=== PATIENT | female | born 1970 | race Caucasian/White ===

== ENCOUNTER → 2022-11-02 15:11 | Outpatient (CLI) | payer BC, SELFPAY ==
--- NOTE | 2022-11-02 15:16 | MM_ITS ---
PROCEDURE INFORMATION: Exam: MG Bilateral Screening 3D Mammography Exam date and time: 11/02/2022 3:15 PM Age: 51 years old Clinical indication: Screening mammogram TECHNIQUE: Imaging protocol: Bilateral Screening tomosynthesis and 2D mammography including computer-aided detection (CAD) when performed. COMPARISON: 1. MG DMSB DIG MAMM-SCREEN LOREN 04/02/2016 9:13 AM 2. MG DMSB DIG MAMM-SCREEN LOREN 03/12/2015 8:38 AM 3. MG DMDXUWAR DIG MAMM-DX UNI RT ADD VIEW 02/15/2014 1:54 PM 4. MG DMSB DIG MAMM-SCREEN LOREN 02/01/2014 10:00 AM FINDINGS: MAMMOGRAPHY: Breast composition: There are scattered areas of fibroglandular density. Mass: None. Architectural distortion: No new or suspicious architectural distortion. Calcifications: No new or suspicious calcifications are present Asymmetric density: No new or suspicious asymmetric density is present Skin thickening: None. Axillary adenopathy: None. IMPRESSION: No mammographic evidence of malignancy. Recommend annual screening mammography unless otherwise clinically indicated. ASSESSMENT: BI-RADS category 1: Negative
== END ==
PROVIDERS: PCP Nurse Practitioner; Visit Provider Nurse Practitioner
DX: Z12.31 Encounter for screening mammogram for malignant neoplasm of breast (principal)
CPT/HCPCS: 77063; 77067

== ENCOUNTER → 2023-03-03 14:58 | Outpatient (CLI) | payer BC, SELFPAY ==
[2023-03-03 15:32] LABS: Basophils % 0.3 % (0.1-2.0); Eosinophils # 0.4 K/mm3 (0.0-0.4); Eosinophils % 5.2 % (0.1-12.0); Lymphocytes # 2.9 K/mm3 (0.7-4.5); Lymphocytes % 35.8 % (10-50); Mean Corpuscular HGB Conc 33.3 g/dL (31.8-35.4); Mean Corpuscular Hemoglobin 30.4 pg (27.0-31.2); Mean Corpuscular Volume 91.2 fl (81-99); Mean Platelet Volume 7.2 fl (7.4-10.4); Monocytes # 0.3 K/mm3 (0.1-1.0); Monocytes % 4.3 % (1.7-9.3); Neutrophils # 4.4 K/mm3 (1.8-7.8); Neutrophils % 54.4 % (37.0-80.0); Platelet Count 347 K/mm3 (142-424); Red Cell Distribution Width 13.5 % (11.5-17.5)
[2023-03-03 15:40] LABS: Chloride 101 mmol/L (98-107); Potassium 3.5 mmoL/L (3.5-5.1); Sodium 141 mmol/L (136-145)
[2023-03-03 15:42] LABS: Bilirubin,Unconjugated 1.7 mg/dL (0.0-1.1); Blood Urea Nitrogen 7 mg/dl (7-17); Estimated Glomerular Filt Rate 76 ml/min (>60); GFR (African American) 92 ML/MIN (>60)
[2023-03-03 15:43] LABS: Alanine Aminotransferase 30 U/L (12-78); Albumin Level 4.3 g/dl (3.5-5.0); Alkaline Phosphatase 86 U/L (38-126); Anion Gap 11.5 mEq/L (5-15); Aspartate Amino Transferase 41 U/L (14-36); Bilirubin,Indirect 1.6 mg/dL (0.0-0.9); Bilirubin,Total 1.6 mg/dl (0.2-1.3); Calcium 9.3 mg/dl (8.4-10.2); Carbon Dioxide 32 mmol/L (22.0-30.0); Chol/HDL Ratio 2.5 (1-3.5); Cholesterol 154 mg/dl (140-200); Glucose 103 mg/dl (74-100); HDL Cholesterol 62 mg/dl (40-60); Total Protein,Serum 7.4 g/dl (6.3-8.2); Triglycerides 177 mg/dl (30-150); VLDL Cholesterol 35 mg/dL (0-40)
[2023-03-03 15:55] LABS: Troponin I < 0.01 ng/ml (0.00-0.034)
[2023-03-03 16:13] LABS: Thyroid Stimulating Hormone 2.05 uIU/mL (0.465-4.68)
[2023-03-03 16:32] LABS: Free T4 (Free Thyroxine) 0.89 ng/dl (0.78-2.19)
== END ==
PROVIDERS: PCP Nurse Practitioner; Visit Provider Physician Assistant
DX: I10 Essential (primary) hypertension (principal); R07.9 Chest pain, unspecified; R00.2 Palpitations; E78.5 Hyperlipidemia, unspecified; K21.9 Gastro-esophageal reflux disease without esophagitis; R60.0 Localized edema; Z82.49 Family history of ischemic heart disease and other diseases of the circulatory system
CPT/HCPCS: 36415; 80048; 80061; 80076; 83735; 84439; 84443; 84484; 85025

== ENCOUNTER → 2023-03-29 06:08 | Outpatient (CLI) | payer BC, SELFPAY ==
--- NOTE | 2023-03-29 07:37 | NM_ITS ---
APPROVED REPORT Exam: Nuclear Stress Test Indication: chest pain..palpitations..fatigue Patient Location: Outpatient Stress Tech: Norma Jaime ND Tech:Ivonne Roche JULIOJaleesa RT (R)(N)(M) Ht: 5 ft 5 in Wt: 187 lbs Bra Size: 40b HR: 58 bpm BP: 131/69 mmHg BSA: 1.92 m2 Rhythm: NSR TID: 1.06 BMI: 31.1 History: chest pain..palpitations..fatigue Procedure: Patient exercised on Lewis protocol 8:31 minutes and sec, resting heart rate 58 bpm, resting blood pressure 131/69 mmHg, with exercise maximum heart rate achived was 150 bpm which is 88 % of the maximum predicted heart rate and blood pressure was 160/82 mmHg. Patient has good exercise capacity, achieved 10.1 METs of workload on treadmill, the blood pressure response to exercise was normal. Cardiac Stress and Resting SPECT Images: Cardiac Stress and Resting SPECT images were obtained using technetium 99m Myoview 31.1 mCi stress and 10.85 mCi at rest. Resting and stress imaging in both supine and prone positions demonstrate a large sized, moderate, predominantly fixed perfusion defect in the anterior wall from the base and extending towards the distal anterior LV wall. There is minimal reversibility in the surrounding region distally towards the apex. Gated LVEF demonstrates normal global and regional LV systolic function. LVEF is calculated at 61%. Conclusion: Large sized, moderate, predominantly fixed perfusion defect in the anterior wall from the base and extending towards the distal anterior LV wall. There is minimal reversibility in the surrounding region distally towards the apex. 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 Gated LVEF demonstrates normal global and regional LV systolic function. LVEF is calculated at 61%. Electronically signed by : Alberta Haile, 03/29/2023 23:41:11
--- NOTE | 2023-03-29 07:37 | CA_ITS ---
APPROVED REPORT Exam: Exercise Treadmill Technologist: Norma Jaime Ht: 5 ft 4 in Wt: 187 lbs BSA: 1.90 m2 HR: 50 bpm BP: 131/69 mmHg Rhythm: NSR Indications: Chest pain, Hypertension Medical History Medications: HCTZ,,,,, RoSUVASTATIN,,,,, Stress Test Details Test: Lewis HR Resting HR: 58 bpm Max Heart Rate (APMHR): 170 bpm Max HR Achieved: 150 bpm Target HR (85% APMHR): 145 bpm % of APMHR: 88 Recovery HR: 75 bpm HR response to stress: Normal HR response to stress BP Resting BP: 131.0/69.0 mmHg Max BP: 160.0/82.0 mmHg Recovery BP: 124.0/64.0 mmHg BP response to stress: Normal blood pressure response to stress. ECG Resting ECG: Sinus bradycardia, Q waves in inferior leads Stress EC mm upsloping ST depression Arrhythmia: PACs, PVCs Recovery ECG: Return to baseline within 3 minutes of recovery Recovery Arrhythmia: PACs Clinical Exercise duration: 08:31 min Highest Stage Achieved: Exercise capacity: 10.1 METs Overall Exercise Capacity for Age: Good Stress ECG Conclusion The patient was able to exercise for 8 minutes, 31 seconds, achieving 10.1 METS. Overall, she exhibited good exercise capacity compared to age and matched sex peers. She had normal HR and BP response to exercise. Symptoms: Chest pain, dyspnea, leg fatigue Arrhythmias/Ectopy: Rare PVC, occassional PAC ST-T Changes: [address] depression was present Conclusion: Mildly abnormal stress, exercised induced chest pain, [address] depression was present. Findings are suggestive of possible ischemia. Myoview images are reported separately. Test Summary REST 06:09 0.0 0.0 58 . 131/ 69 . . Stage 1 01:00 10.0 1.7 81 . . . . Stage 1 02:00 10.0 1.7 89 . . . . Stage 1 03:00 10.0 1.7 105 . 142/ 80 . . Stage 2 01:00 12.0 2.5 112 . . . . Stage 2 02:00 12.0 2.5 117 . . . . Stage 2 03:00 12.0 2.5 120 . 150/ 78 . . Stage 3 01:00 14.0 3.4 139 . . . . Stage 3 . . . . . . . Myoview Injected Stage 3 02:00 14.0 3.4 149 . . . . Stage 3 02:31 14.0 3.4 149 . . . Stop exercise at 08:31 RECOVERY 01:00 0.0 0.0 112 . 160/ 82 . . RECOVERY 02:00 0.0 0.0 93 . 160/ 82 . . RECOVERY 03:00 0.0 0.0 78 . 154/ 59 . . RECOVERY 04:00 0.0 0.0 84 . 132/ 61 . . RECOVERY 05:00 0.0 0.0 74 . 132/ 61 . . RECOVERY 05:26 0.0 0.0 77 . 124/ 64 . . Electronically signed by : Alberta Haile, 03/29/2023 23:35:02
== END ==
PROVIDERS: PCP Nurse Practitioner; Visit Provider Physician Assistant
DX: R07.9 Chest pain, unspecified (principal); I10 Essential (primary) hypertension; R60.0 Localized edema; E78.5 Hyperlipidemia, unspecified; K21.9 Gastro-esophageal reflux disease without esophagitis; Z82.49 Family history of ischemic heart disease and other diseases of the circulatory system
CPT/HCPCS: 78452; 93017; 93306; A9502

== ENCOUNTER 2023-04-15 03:58 | Emergency (ER) | payer BC, SELFPAY ==
[2023-04-15] VITALS (22 sets, daily range): BP systolic 100–159; BP diastolic 46–83; PULSE 47–58; RESP 16–21; TEMP 36.6; O2SAT 92–100; BMI 32.2
--- NOTE | 2023-04-15 03:58 | ECG_ITS ---
APPROVED REPORT Exam: Resting ECG HR:53 bpm ECG Measurements Heart Rate 53 AXES WI 140 P 44 QRSd 97 QRS 45 QT 426 T 38 QTc 410 Conclusion SINUS BRADYCARDIA BORDERLINE ECG UNCONFIRMED REPORT Electronically signed by : Kapil Flores MD 04/15/2023 21:35:08
--- NOTE | 2023-04-15 04:04 | XR_ITS ---
PROCEDURE INFORMATION: Exam: XR Chest Exam date and time: 04/15/2023 4:03 AM Age: 52 years old Clinical indication: Sternal or substernal pain; Additional info: Cp TECHNIQUE: Imaging protocol: Radiologic exam of the chest. Views: 2 views. COMPARISON: No relevant prior studies available. FINDINGS: Lungs: Unremarkable. No consolidation. Pleural spaces: Unremarkable. No pleural effusion. No pneumothorax. Heart/Mediastinum: Unremarkable. No cardiomegaly. Bones/joints: Unremarkable. IMPRESSION: No acute findings.
[2023-04-15 04:29] LABS: Hematocrit 44.1 % (37.0-47.0); Hemoglobin 14.3 g/dL (12.2-16.2); Mean Corpuscular HGB Conc 32.5 g/dL (31.8-35.4); Mean Corpuscular Hemoglobin 29.7 pg (27.0-31.2); Mean Corpuscular Volume 91.5 fl (81-99); Mean Platelet Volume 7.5 fl (7.4-10.4); Platelet Count 322 K/mm3 (142-424); Red Blood Count 4.82 M/mm3 (4.20-5.40); Red Cell Distribution Width 13.2 % (11.5-17.5); White Blood Count 8.5 K/mm3 (4.8-10.8)
[2023-04-15 04:30] LABS: Basophils # 0.1 K/mm3 (0-0.2); Basophils % 0.6 % (0.1-2.0); Eosinophils # 0.4 K/mm3 (0.0-0.4); Eosinophils % 4.3 % (0.1-12.0); Lymphocytes # 3.5 K/mm3 (0.7-4.5); Lymphocytes % 41.4 % (10-50); Monocytes # 0.4 K/mm3 (0.1-1.0); Monocytes % 4.8 % (1.7-9.3); Neutrophils # 4.1 K/mm3 (1.8-7.8); Neutrophils % 47.6 % (37.0-80.0)
[2023-04-15 04:50] LABS: Anion Gap 13.1 mEq/L (5-15); Bilirubin,Total 1.4 mg/dl (0.2-1.3); Blood Urea Nitrogen 11 mg/dl (7-17); Calcium 9.1 mg/dl (8.4-10.2); Carbon Dioxide 29 mmol/L (22.0-30.0); Chloride 103 mmol/L (98-107); Creatinine Clearance Estimated 101 mL/min (50-200); Estimated Glomerular Filt Rate 66 ml/min (>60); GFR (African American) 80 ML/MIN (>60); Glucose 88 mg/dl (74-100); Potassium 3.1 mmoL/L (3.5-5.1); Sodium 142 mmol/L (136-145); Troponin I < 0.01 ng/ml (0.00-0.034)
[2023-04-15 04:51] LABS: Alanine Aminotransferase 33 U/L (12-78); Albumin Level 4.5 g/dl (3.5-5.0); Albumin/Globulin Ratio 1.3 (1.1-1.8); Alkaline Phosphatase 84 U/L (38-126); Aspartate Amino Transferase 37 U/L (14-36); Globulin 3.4 g/dL (1.3-3.2); Total Protein,Serum 7.9 g/dl (6.3-8.2)
--- NOTE | 2023-04-15 04:59 | HMH.EDCP ---
Discharge Plan Disposition Chief Complaint: Chest Pain Prescriptions Prescriptions: No Action rosuvastatin 40 mg tablet 40 mg PO DAILY hydrochlorothiazide 12.5 mg tablet 12.5 mg PO DAILY omeprazole 40 mg capsule,delayed release(DR/EC) 40 mg PO DAILY aspirin [Adult Low Dose Aspirin] 81 mg tablet,delayed release (DR/EC) 81 mg PO DAILY metoprolol succinate [Toprol XL] 25 mg tablet extended release 24 hr 25 mg PO DAILY Referrals Follow up/Referrals: Rut Powell APRN [Primary Care Provider] - See instructions Discharge ED Provider: Deep Castro Chest Pain HPI General Chief Complaint: Chest Pain Stated Complaint: cp Time Seen by Provider: 04/15/23 04:23 Mode of Arrival: Ambulatory Source of Information: Patient Limitations: No Limitations Description of Symptoms (Recalled from ER Triage Doc. by RN): pt c/o lt side chest pain with radiation down lt arm since 2am. pt took 81 mg ASA. History of Present Illness HPI narrative: 52-year-old white female weight 2 AM with chest pain that radiates to the left nipple. She also reports that her left hand feels numb and tingly at times. No shortness of breath no nausea vomiting or diaphoresis. She has hypertension and hypercholesterolemia she has recently been on their work-up for cardiology and has had an echocardiogram and a stress test they are talking about doing a heart cath in the near future. Related Data Home Medications Medication Instructions Recorded Confirmed hydrochlorothiazide 12.5 mg tablet 12.5 mg PO DAILY High Blood 03/03/23 04/15/23 Pressure rosuvastatin 40 mg tablet 40 mg PO DAILY High Cholesterol 03/03/23 04/15/23 aspirin 81 mg tablet,delayed 81 mg PO DAILY Blood Thinner 04/15/23 04/15/23 release (Adult Low Dose Aspirin) metoprolol succinate 25 mg 25 mg PO DAILY High Blood Pressure 04/15/23 04/15/23 tablet,extended release 24 hr (Toprol XL) omeprazole 40 mg capsule,delayed 40 mg PO DAILY gerd 04/15/23 04/15/23 release Allergies Allergy/AdvReac Type Severity Reaction Status Date / Time NO KNOWN ALLERGIES Allergy Uncoded 04/13/23 10:34 [facility] Disclaimer: The information contained in this section may have been updated after the patient was seen, as this information can be updated by other users. Medical History Chest pain Edema of hand Family history of ischemic heart disease GERD (gastroesophageal reflux disease) HLD (hyperlipidemia) HTN (hypertension) Palpitations Social History Smoking Status: Never smoker alcohol intake: never substance use type: denies use current occupational status: employed Travel in the last 8 weeks: None ROS Obtained: Yes Systems reviewed as appropriate & no additional complaints except as documented Physical Exam General General appearance: alert and in no apparent distress Head Head exam: atraumatic and normocephalic ENT ENT exam: Present normal exam and normal oropharynx Neck Neck exam: Present normal inspection Chest Chest inspection: Present normal inspection and symmetric chest wall rise Respiratory Respiratory exam: Present normal lung sounds bilaterally; Absent respiratory distress or wheezes Cardiovascular Cardiovascular exam: Present regular rate and normal rhythm Abdominal Exam Abdominal exam: Present soft; Absent tenderness Extremities Exam Extremities exam: Present normal inspection and full ROM; Absent tenderness Neurological Exam Neurological exam: Present alert, oriented X3 and CN II-XII intact Medical Decision Making Medical Records MR Comment: 52-year-old white female presents with chest pain waking her from sleep. The patient has been having intermittent chest pain and is currently in the middle of a cardiology work-up which has recently indicated that she had a positive stress test with fixed defect in her anter
--- NOTE | 2023-04-15 05:26 | PC.NURSE ---
MD PREFERS TO WAIT A LITTLE BIT BEFORE CONTACTING CARDIOLOGY
--- NOTE | 2023-04-15 07:09 | PC.NURSE ---
Repeat Troponin sent
--- NOTE | 2023-04-15 07:43 | PC.NURSE ---
Rounded on patient; pt resting on ED stretcher with family at BS. No needs at this time.
[2023-04-15 07:58] LABS: Troponin I < 0.01 ng/ml (0.00-0.034)
--- NOTE | 2023-04-15 08:40 | PC.NURSE ---
Awaiting a call back from MELYSSA Fish with Cardiology
--- NOTE | 2023-04-15 08:55 | PC.NURSE ---
Polina KUO @ [facility]
--- NOTE | 2023-04-15 08:55 | PC.NURSE ---
MELYSSA Fish with cardiology at [facility]
--- NOTE | 2023-04-15 09:09 | PC.NURSE ---
Covid swab sent to lab; pt reports no other needs at this time. call light within reach
[2023-04-15 09:16] LABS: Coronavirus 19, PCR Not Detected (NotDetected); Influenza A, PCR Not Detected (NotDetected); Influenza B, PCR Not Detected (NotDetected)
--- NOTE | 2023-04-15 09:22 | HMH.PHAINT1 ---
Pharmacy Intervention Comments: MEDICATION RECONCILIATION COMPLETED ON PATIENT USING EXTERNAL FILL HISTORY FROM PHARMACY AND LIST FROM CARDIOLOGY OFFICE. -KAIA ABDALLA, YUMIKOD
--- NOTE | 2023-04-15 09:24 | ECG_ITS ---
APPROVED REPORT Exam: Resting ECG HR:53 bpm ECG Measurements Heart Rate 53 AXES ID 177 P 66 QRSd 91 QRS 45 QT 438 T 27 QTc 422 Conclusion SINUS BRADYCARDIA BORDERLINE ECG UNCONFIRMED REPORT Electronically signed by : Kapil Flores MD 04/15/2023 21:34:23
--- NOTE | 2023-04-15 09:28 | PC.NURSE ---
CM contacted for admission
--- NOTE | 2023-04-15 09:29 | IR_ITS ---
APPROVED REPORT Patient Location: Emergent Associate Property Manager: LIZETH Ibanez RT (R) PROCEDURES Left heart catheterization Left ventriculogram Selective coronary angiogram Catheter placement in the left subclavian artery with left subclavian artery angiography INDICATION Unstable angina, Blood pressure disparity between right and left arm suspect left subclavian stenosis, Informed consent was obtained prior to the procedure. COMPLICATIONS None Estimated Blood Loss: Less than 10 mls TECHNIQUE One percent lidocaine used to anesthetize the right groin. The right femoral artery was accessed via the Seldinger technique and a 5 Kosovan sheath was placed in the right femoral artery. A JL 4, JR4 catheter were used to perform left heart catheterization, left ventriculogram selective coronary angiography as well as selective engagement of the 2 vein grafts and the left internal mammary artery. At the end of the procedure the patient was transferred to the postop holding area in stable condition for sheath removal. ANGIOGRAPHIC RESULTS The left main artery Normal The left anterior descending artery Normal The circumflex artery Dominant normal The right coronary artery Normal The THOMSON ventriculogram reveals Normal 65% The left ventricular end-diastolic pressure Normal 10 mmHg Left subclavian artery is normal IMPRESSION Normal coronary arteries Normal ejection fraction Normal left ventricular end-diastolic pressure Normal left subclavian artery PLAN 1. Evaluation of noncardiac symptoms Electronically signed by : Henri Bustos MD 04/15/2023 10:30:27
--- NOTE | 2023-04-15 09:37 | PC.NURSE ---
Kala Samuel RN, at to take patient up to record label internship via wheelchair
--- NOTE | 2023-04-15 09:48 | EXP.CARD.CON ---
History of Present Illness History of Present Illness Consult date: 04/15/23 Requesting physician: Deep Bolanos Consult reason: chest pain Chief complaint: unstable angina, left arm pain History of present illness: 52-year-old white female with past medical history of hypertension, hyperlipidemia and GERD presented to emergency department this morning with complaints of midsternal chest pain radiating to left chest and left arm since 2 AM. Patient was evaluated in cardiology clinic on 04/13/2023 for abnormal stress test and has been set up for an outpatient left heart cath. Reports pain awoke her from sleep this morning prompting her to come to ER. EKG upon arrival was negative for acute ischemic changes and serial troponins have been negative. Other labs as follow: WBC 8.5, hemoglobin 14.3, sodium 142, potassium 3.1 and creatinine 0.9. Chest x-ray was negative for acute process. Patient reports she has had ongoing and progressive worsening chest pain with activity and at rest associated with shortness of breath and nausea for the past 2 months. Patient also complaining of left arm pain that is worse with activity and coolness to hand. Given patient has ongoing angina symptoms and an abnormal stress test we will admit patient for left heart catheterization today. [facility] Disclaimer: The information contained in this section may have been updated after the patient was seen, as this information can be updated by other users. Medical History Chest pain Edema of hand Family history of ischemic heart disease GERD (gastroesophageal reflux disease) HLD (hyperlipidemia) HTN (hypertension) Palpitations Social History Smoking Status: Never smoker alcohol intake: never substance use type: denies use current occupational status: employed Travel in the last 8 weeks: None Review of Systems Review of Systems Review of systems:: pertinent systems reviewed and negative unless documented below Constitutional Constitutional: Reports system reviewed and no additional complaints, except as documented *Cardiovascular Cardiovascular: Reports chest pain and Reports dyspnea *Respiratory Respiratory: Reports system reviewed and no additional complaints, except as documented and Reports dyspnea *Gastrointestinal Gastrointestinal: Reports system reviewed and no additional complaints, except as documented *Musculoskeletal Comments: Left upper extremity pain, exacerbated with activity *Neurologic Neurologic: Reports system reviewed and no additional complaints, except as documented and Denies confusion Psychiatric Psychiatric: Reports system reviewed and no additional complaints, except as documented and Denies confusion Exam Data for Last 24 hours Vital signs and Labs for Last 24 Hours: Temp Pulse Resp BP Pulse Ox O2 Del Method 97.8 F 58 L 16 158/83 H 97 Room Air 04/15/23 09:42 04/15/23 09:42 04/15/23 09:42 04/15/23 09:42 04/15/23 08:30 04/15/23 09:42 Laboratory Results - last 24 hr 04/15/23 04:05: WBC 8.5, RBC 4.82, Hgb 14.3, Hct 44.1, MCV 91.5, MCH 29.7, MCHC 32.5, RDW 13.2, Plt Count 322, MPV 7.5, Neut % (Auto) 47.6, Lymph % (Auto) 41.4, [place] % (Auto) 4.8, Eos % (Auto) 4.3, Baso % (Auto) 0.6, Neut # (Auto) 4.1, Lymph # (Auto) 3.5, [place] # (Auto) 0.4, Eos # (Auto) 0.4, Baso # (Auto) 0.1, Sodium 142, Potassium 3.1 L, Chloride 103, Carbon Dioxide 29, Anion Gap 13.1, BUN 11, Creatinine 0.90, Estimated Creat Clear 101, Estimated GFR 66, Est GFR ( Amer) 80, Glucose 88, Calcium 9.1, Total Bilirubin 1.4 H, AST 37 H, ALT 33, Alkaline Phosphatase 84, Troponin I < 0.01, Total Protein 7.9, Albumin 4.5, Globulin 3.4 H, Albumin/Globulin Ratio 1.3 04/15/23 07:07: Troponin I < 0.01 I & O for Last 24 hours: Intake & Output 04/12/23 04/13/23 04/14/23 04/15/23 23:59 23:59 23:59 23:59 Weight 188 lb Constitutional Consti
--- NOTE | 2023-04-15 15:51 | PC.NURSE ---
PT IS BEING DISCHARGED HOME. PT HAS BEEN UP TO THE BATHROOM. REQUESTED A MTCALLY TO DRINK AND TOLERATED WELL. AMBULATED IN THE ROOM. PT HAS A FOLLOW UP APPOINTMENT WITH CARDIOLOGY AND WAS INSTRUCTED TO FOLLOW UP WITH HER PCP. CONTINUE ALL HOME MEDICATIONS PRESCRIBED. DRESSING TO THE RIGHT GROIN C/D/I. PT AND UNDERSTOOD DISCHARGE INTRUCTIONS.
== END 2023-04-15 15:57 | disposition admitted as inpatient to this hospital (09) | DRG 287 ==
LOC: ER 09:24 → 2ND 09:33 → ER 04-16 14:42
PROVIDERS: Family Medicine; Internal Medicine; Emergency Provider Emergency Medicine; PCP Nurse Practitioner; Visit Provider Internal Medicine
PROC: 4A023N7 Measurement of Cardiac Sampling and Pressure, Left Heart, Percutaneous Approach (ICD-10-PCS; principal; 2023-04-15 09:45)
DX: I25.110 Atherosclerotic heart disease of native coronary artery with unstable angina pectoris (principal); M79.602 Pain in left arm; I10 Essential (primary) hypertension; K21.9 Gastro-esophageal reflux disease without esophagitis; E78.00 Pure hypercholesterolemia, unspecified
CPT/HCPCS: 36225; 71046; 80053; 84484; 85025; 87636; 93005; 93458; 96374; 96375; 99152; 99285; C1725; C1769; Q9967

== ENCOUNTER 2024-04-26 11:00 | Outpatient (CLI) | payer OTHER, SELFPAY ==
[2024-04-26 11:32] LABS: Basophils # 0.1 K/mm3 (0-0.2); Basophils % 0.7 % (0.1-2.0); Eosinophils # 0.2 K/mm3 (0.0-0.4); Eosinophils % 2.9 % (0.1-12.0); Hematocrit 36.6 % (37.0-47.0); Lymphocytes # 2.2 K/mm3 (0.7-4.5); Lymphocytes % 33.2 % (10-50); Mean Corpuscular HGB Conc 38.3 g/dL (31.8-35.4); Mean Corpuscular Hemoglobin 35.4 pg (27.0-31.2); Mean Corpuscular Volume 92.4 fl (81-99); Mean Platelet Volume 7.9 fl (7.4-10.4); Monocytes # 0.3 K/mm3 (0.1-1.0); Monocytes % 4.8 % (1.7-9.3); Neutrophils # 3.9 K/mm3 (1.8-7.8); Neutrophils % 58.4 % (37.0-80.0); Platelet Count 253 K/mm3 (142-424); Red Blood Count 3.96 M/mm3 (4.20-5.40); Red Cell Distribution Width 13.8 % (11.5-17.5); White Blood Count 6.6 K/mm3 (4.8-10.8)
[2024-04-26 12:39] LABS: Alanine Aminotransferase 26 U/L (12-78); Albumin Level 4.1 g/dl (3.5-5.0); Alkaline Phosphatase 79 U/L (38-126); Anion Gap 10.1 mEq/L (5-15); Aspartate Amino Transferase 33 U/L (14-36); Bilirubin,Indirect 1.6 mg/dL (0.0-0.9); Bilirubin,Total 1.6 mg/dl (0.2-1.3); Bilirubin,Unconjugated 1.8 mg/dL (0.0-1.1); Blood Urea Nitrogen 10 mg/dl (7-17); Calcium 9.7 mg/dl (8.4-10.2); Carbon Dioxide 30 mmol/L (22.0-30.0); Chloride 105 mmol/L (98-107); Chol/HDL Ratio 2.8 (1-3.5); Cholesterol 164 mg/dl (140-200); Estimated Glomerular Filt Rate 76 ml/min (>60); GFR (African American) 92 ML/MIN (>60); Glucose 100 mg/dl (74-100); HDL Cholesterol 59 mg/dl (40-60); Potassium 4.1 mmoL/L (3.5-5.1); Sodium 141 mmol/L (136-145); Total Protein,Serum 6.7 g/dl (6.3-8.2); Triglycerides 164 mg/dl (30-150); VLDL Cholesterol 33 mg/dL (0-40)
[2024-04-26 12:51] LABS: Direct LDL Cholesterol 65.38 mg/dL (100-129)
[2024-04-26 12:53] LABS: Free T4 (Free Thyroxine) 0.87 ng/dl (0.78-2.19)
[2024-04-26 13:10] LABS: Thyroid Stimulating Hormone 0.14 uIU/mL (0.465-4.68)
== END 2024-04-26 23:59 | disposition home or self-care (01) ==
LOC: LAB 11:01
PROVIDERS: PCP Nurse Practitioner; Visit Provider Nurse Practitioner
DX: R06.00 Dyspnea, unspecified (principal); E78.5 Hyperlipidemia, unspecified; K21.9 Gastro-esophageal reflux disease without esophagitis; R07.89 Other chest pain; I11.9 Hypertensive heart disease without heart failure
CPT/HCPCS: 36415; 80048; 80061; 80076; 83735; 84439; 84443; 85025

== ENCOUNTER 2024-06-01 10:47 | Outpatient (CLI) | payer OTHER, SELFPAY ==
--- NOTE | 2024-06-01 10:47 | US_ITS ---
FINAL REPORT CLINICAL HISTORY: discoloration of BLE, HTN, hyperlipidemia, bilateral rest pain. COMPARISON: None FINDINGS: ANKLE-BRACHIAL PRESSURE INDICES Pressure indices are as follows: RIGHT LOWER EXTREMITY: Ankle-brachial pressure index: 1.3 Comments: Normal LEFT LOWER EXTREMITY: Ankle-brachial pressure index: 1.21 Comments: Normal CONCLUSION: No evidence of significant obstructive peripheral vascular disease of the lower extremities Reviewed, Interpreted and Dictated by Jarred Terrazas MD Transcribed by Janine Veloz Authenticated and [facility]
== END 2024-06-01 23:59 | disposition home or self-care (01) ==
LOC: RT 10:47
PROVIDERS: PCP Nurse Practitioner; Visit Provider Nurse Practitioner
DX: M79.661 Pain in right lower leg (principal); M79.662 Pain in left lower leg; L81.9 Disorder of pigmentation, unspecified; R00.1 Bradycardia, unspecified; R06.09 Other forms of dyspnea
CPT/HCPCS: 93923

== ENCOUNTER 2024-06-02 08:02 | Outpatient (CLI) | payer OTHER, SELFPAY ==
--- NOTE | 2024-06-02 08:37 | MM_ITS ---
PROCEDURE INFORMATION: Exam: MG Bilateral Screening 3D Mammography Exam date and time: 06/02/2024 8:27 AM Age: 53 years old Clinical indication: Screening examination TECHNIQUE: Imaging protocol: Bilateral Screening tomosynthesis and 2D mammography including computer-aided detection (CAD) when performed. COMPARISON: 1. MG MM DIG SCREENING MAMM BI W/CAD 11/02/2022 3:15 PM 2. MG DMSB DIG MAMM-SCREEN LOREN 04/02/2016 9:13 AM FINDINGS: MAMMOGRAPHY: Breast composition: There are scattered areas of fibroglandular density. Mass: None. Architectural distortion: None. Calcifications: No suspicious calcifications. Asymmetric density: None. Skin thickening: None. Axillary adenopathy: None. IMPRESSION: No mammographic evidence of malignancy. Annual screening is recommended unless otherwise clinically indicated. ASSESSMENT: BI-RADS Category 1: Negative
== END 2024-06-02 23:59 | disposition home or self-care (01) ==
LOC: RAD 08:02
PROVIDERS: PCP Nurse Practitioner; Visit Provider Nurse Practitioner
DX: Z12.39 Encounter for other screening for malignant neoplasm of breast (principal)
CPT/HCPCS: 77063; 77067

== ENCOUNTER 2024-07-04 08:55 | Outpatient (CLI) | payer OTHER, SELFPAY ==
--- NOTE | 2024-07-04 09:00 | XR_ITS ---
FINAL REPORT CLINICAL HISTORY: Left hand pain COMPARISON: None FINDINGS: LEFT HAND Three views demonstrate no acute fracture or dislocation. The visualized joint spaces are normally aligned. There is mild hypertrophy of the second and third MCP joints, consistent with osteoarthritic change. The soft tissues are unremarkable. 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 Reviewed, Interpreted and Dictated by Jarred Terrazas MD Transcribed by Janine Veloz Authenticated and [facility]
--- NOTE | 2024-07-04 09:00 | XR_ITS ---
FINAL REPORT CLINICAL HISTORY: Right Hand Pain COMPARISON: None FINDINGS: RIGHT HAND Three views demonstrate no acute fracture or dislocation. The visualized joint spaces are normally aligned. There is mild hypertrophic change of the second and third metacarpal phalangeal joints, consistent with changes of osteoarthritis. The soft tissues are unremarkable. 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 Reviewed, Interpreted and Dictated by Jarred Terrazas MD Transcribed by Janine Veloz Authenticated and [facility]
== END 2024-07-04 23:59 | disposition home or self-care (01) ==
LOC: RAD 08:57
PROVIDERS: PCP Nurse Practitioner; Visit Provider Physician Assistant Surgical
DX: M79.641 Pain in right hand (principal); M79.642 Pain in left hand
CPT/HCPCS: 73130

== ENCOUNTER 2024-07-13 14:57 | Outpatient (CLI) | payer OTHER, SELFPAY ==
--- NOTE | 2024-07-13 14:57 | MR_ITS ---
FINAL REPORT CLINICAL HISTORY: Cervical spine pain left sided and left arm pain, numbness, tingling FINDINGS: Multiplanar MR imaging of the cervical spine was performed without contrast. On the sagittal T2-weighted images, disc degeneration is seen throughout the lumbar spine. There are endplate changes at several levels. There is no evidence of fracture. There is mild kyphosis centered at C5. The cervical spinal cord has an unremarkable appearance without evidence of mass, edema or syrinx. No significant canal stenosis is identified. The cervicomedullary junction is normal. C2-3: There is no significant canal stenosis or neural foraminal narrowing. C3-4: An annular bulge is present. There is no significant canal stenosis or neural foraminal narrowing. C4-5: An annular bulge is present. There is no significant canal stenosis or neural foraminal narrowing. C5-6: There is a disc osteophyte complex with moderate left neuroforaminal narrowing. C6-7: There is a disc osteophyte complex with moderate right neuroforaminal narrowing. C7-T1: There is no significant canal stenosis or neural foraminal narrowing. IMPRESSION: Multilevel degenerative disc disease as above. Reviewed, Interpreted and Dictated by Hector Rainey III, MD Transcribed by Kaylie Parra Authenticated and [facility]
== END 2024-07-13 23:59 | disposition home or self-care (01) ==
LOC: RAD 14:57
PROVIDERS: PCP Physician Assistant Surgical; Visit Provider Physician Assistant Surgical
DX: M54.12 Radiculopathy, cervical region (principal)
CPT/HCPCS: 72141

== ENCOUNTER 2024-08-03 07:16 | Day surgery (SDC) | payer OTHER, SELFPAY ==
[2024-07-28 13:08] VITALS: BMI 31.6
[2024-08-03 07:51] VITALS: BP 139/72; PULSE 54; RESP 16; TEMP 36.4; O2SAT 99
[2024-08-03] MEDS: LACTATED RINGERS 1000ML 1,000 ML 25 ML IV (08:05)
--- NOTE | 2024-08-03 08:16 | P.PNANES_ITS ---
[facility] Disclaimer: The information contained in this section may have been updated after the patient was seen, as this information can be updated by other users. Medical History Right hand pain Left hand pain Palpitations GERD (gastroesophageal reflux disease) HLD (hyperlipidemia) HTN (hypertension) Family history of ischemic heart disease Edema of hand Chest pain Surgical History History of cardiac cath H/O: hysterectomy Hx of section Hx laparoscopic cholecystectomy Family History Father Coronary artery disease Colon cancer Social History (Updated 08/03/24 @ 07:51 by Annamaria Crystal) Smoking Status: Never smoker alcohol intake: never substance use type: denies use current occupational status: employed Travel in the last 8 weeks: None caffeine: No [facility] Anesthesia Checklist Patient Identification Patient Identification: Arm Band Structural Data Admitted From: Home Planned Operative Procedure/s: Colonoscopy Consent for Planned Operative Procedure(s) Verified: Yes Verified Documents: Surgical Consent and History and Physical NPO Status Verified Time NPO: 00:00 Additional verifications Anesthesia Reactions: No Airway Assessment Mallampati Score:: Class II C-Spine Mobility Assessed: Yes TMJ Mobility Assessed: Yes Dentition: Good Dentition Neurological Assessment Level of Consciousness: Awake, Alert and Appropriate Anesthesia Plan Anesthesia Risk discussed: Yes Anesthesia Plan: Verified ASA Class: II Anesthesia Type: MAC
--- NOTE | 2024-08-03 08:55 | P.HP_ITS ---
History of Present Illness *Admission Date: 08/03/24 *Reason for visit:: Screening *History of present illness: Mrs. Mathews is a 53-year-old female who is here for initial screening colonoscopy. The examination is deemed medically necessary for colonoscopy. The patient has been seen, interviewed and examined prior to the procedure by both myself and the anesthesia provider. [facility] Disclaimer: The information contained in this section may have been updated after the patient was seen, as this information can be updated by other users. Medical History (Updated 08/03/24 @ 09:04 by Ozzy Suárez II, MD) Right hand pain Left hand pain Palpitations GERD (gastroesophageal reflux disease) HLD (hyperlipidemia) HTN (hypertension) Family history of ischemic heart disease Edema of hand Chest pain Surgical History History of cardiac cath H/O: hysterectomy Hx of section Hx laparoscopic cholecystectomy Family History Father Coronary artery disease Colon cancer Social History (Updated 08/03/24 @ 07:51 by Annamaria Crystal) Smoking Status: Never smoker alcohol intake: never substance use type: denies use current occupational status: employed Travel in the last 8 weeks: None caffeine: No Other Medical History Have you received the Flu Vaccine for this season: No Have you received the Pneumonia Vaccine: No Review of Systems Review of Systems Review of systems (narrative): Negative *Cardiovascular Comments: Negative *Gastrointestinal Comments: Negative *Genitourinary Comments: Negative *Musculoskeletal Comments: Negative *Neurologic Comments: Negative Meds Home Medications and Allergies Home Medications ?Medication ?Instructions ?Recorded ?Confirmed ?Type hydrochlorothiazide 12.5 mg tablet 12.5 mg PO DAILY Fluid 03/03/23 07/28/24 History rosuvastatin 40 mg tablet 40 mg PO DAILY Cholesterol 03/03/23 07/28/24 History aspirin 81 mg tablet,delayed 81 mg PO DAILY HEART HEALTH #90 04/26/24 07/28/24 Rx release (Adult Low Dose Aspirin) tabs estradiol 0.01% (0.1 mg/gram) 0.01 applic vaginal DAILY 04/26/24 07/28/24 History vaginal cream metoprolol succinate 25 mg 25 mg PO DAILY Hypertension #90 04/26/24 07/28/24 Rx tablet,extended release 24 hr tabs (Toprol XL) omeprazole 40 mg capsule,delayed 40 mg PO DAILY Acid Reflux #90 caps 04/26/24 07/28/24 Rx release New Prescriptions to Start Prescriptions: Allergies Allergy/AdvReac Type Severity Reaction Status Date / Time No Known Allergies Allergy Verified 07/04/24 09:41 Exam Data for Last 24 hours Vital signs and Labs for Last 24 Hours: Temp Pulse Resp BP Pulse Ox O2 Del Method 97.5 F L 54 L 16 139/72 99 Room Air 08/03/24 07:51 08/03/24 07:51 08/03/24 07:51 08/03/24 07:51 08/03/24 07:51 08/03/24 07:51 *Routine HEENT Exam Head: Present normocephalic Eye: Present EOMI and PERRL ENT: Present mucous membranes moist *Routine Neck Exam Neck: Present supple *Routine Respiratory Exam Respiratory: Present CTA bilaterally *Routine Cardiovascular Exam Cardiovascular: Present RRR *Routine Abdominal Exam Abdominal: Present soft and normoactive bowel sounds; Absent tenderness *Routine Rectal Exam Rectal:: deferred *Routine Genitalia Exam Genitalia:: deferred *Routine Extremities Exam Extremities: Absent cyanosis, clubbing or edema *Routine Skin Exam Skin: Present warm; Absent rash *Routine Neurological Exam Neurological: Present alert and oriented X3 Assessment and Plan *Assessment and plan (1) Screening for colon cancer: Status: Acute Category: Medical Code(s): Z12.11 - Encounter for screening for malignant neoplasm of colon Plan A/P: 1. Screening for colon cancer is the preprocedural diagnosis. The patient will be anesthetized/sedated using MAC sedation. The patient has been seen and examined. Cardiac and lung assessment prior to the examination is stable. Proceed with planned colonoscopy
[2024-08-03 08:57] VITALS: O2SAT 99
--- NOTE | 2024-08-03 09:05 | HMH.PROCNOTE ---
[facility] Procedure Note Date: 08/03/24 Time: 09:25 Procedure Note:: Colonoscopy Procedure Report: Colonoscopy Endoscopist: Ozzy Suárez II, MD Referring physician: MALISSA Arriaga ([facility]) Date of Procedure: August 03, 2024 Equipment: Olympus 190 variable stiffness pediatric colonoscope Sedation: MAC sedation Indication: Mrs. Mathews is a 53-year-old female who is here for initial screening colonoscopy. The patient reports no rectal bleeding or weight loss. She has had some chronic constipation for which she takes MiraLAX daily. This does result in some bloating and intermittent abdominal discomfort. The patient's father had colon cancer at the age of 83. The patient did have a colonoscopy in her 20s. Procedure: Prior to the procedure, a history and physical exam was performed, and patient's medications and allergies were reviewed. The risks, benefits and alternatives of the sedation and procedure were discussed with the patient. All questions were answered and informed consent was obtained. The patient was brought to the procedure room. Patient identification and proposed procedure were verified by the physician and the nurse. The patient was placed in a left lateral decubitus position and the scope was passed under direct vision. Throughout the procedure, the patient's blood pressure, pulse, and oxygen saturations were monitored continuously. The colonoscopy was accomplished without difficulty. The patient tolerated the procedure well. Findings: On digital rectal examination there was normal rectal tone. There were no external hemorrhoids. The colonoscope was introduced through the anal canal to the rectum and advanced to the cecum. The ileocecal valve and appendiceal orifice were identified. The scope was advanced a short distance into the ileum which appeared grossly normal. The scope was then withdrawn into the colon. The cecum, ascending, transverse, descending, sigmoid and rectum were grossly normal. There were no mucosal abnormalities identified. Upon retroflexion within the rectum there were grade 1 internal hemorrhoids.The preparation was excellent throughout with [place] Preparation Score of 9. The cecal time was 11 minutes. Impression: 1. Normal colonoscopy with intubation of the terminal ileum 2. Grade 1 internal hemorrhoids Plan: The patient will not require screening/surveillance colonoscopy again for 10 years by ACS guidelines. I would recommend continuing MiraLAX with the addition of Citrucel. If patient fails to improve, would consider Linzess or Trulance. The patient may benefit from pelvic floor physical therapy.
[2024-08-03 09:29] VITALS: BP 92/41; PULSE 76; RESP 16; TEMP 37.1; O2SAT 99
[2024-08-03 09:39] VITALS: BP 98/52; PULSE 75; RESP 16; O2SAT 98
[2024-08-03 09:49] VITALS: BP 114/59; PULSE 62; RESP 16; O2SAT 99
[2024-08-03 09:59] VITALS: BP 111/51; PULSE 60; RESP 16; O2SAT 99
== END 2024-08-03 10:09 | disposition home or self-care (01) ==
PROVIDERS: PCP Nurse Practitioner; Visit Provider Internal Medicine Gastroenterology
PROC: (CPT 45378; principal; 2024-08-03 09:00)
DX: R14.0 Abdominal distension (gaseous) (principal); K64.0 First degree hemorrhoids; Z80.0 Family history of malignant neoplasm of digestive organs; Z12.11 Encounter for screening for malignant neoplasm of colon
CPT/HCPCS: 45378; J7120

== ENCOUNTER 2024-12-19 09:57 | Outpatient (CLI) | payer OTHER, SELFPAY ==
[2024-12-19 10:18] LABS: Basophils % 0.3 % (0.1-2.0); Eosinophils # 0.3 K/mm3 (0.0-0.4); Eosinophils % 3.2 % (0.1-12.0); Hematocrit 42.5 % (37.0-47.0); Hemoglobin 14.2 g/dL (12.2-16.2); Lymphocytes # 2.2 K/mm3 (0.7-4.5); Lymphocytes % 21.9 % (10-50); Mean Corpuscular HGB Conc 33.4 g/dL (31.8-35.4); Mean Corpuscular Hemoglobin 30.2 pg (27.0-31.2); Mean Corpuscular Volume 90.4 fl (81-99); Mean Platelet Volume 9.4 fl (7.4-10.4); Monocytes # 0.6 K/mm3 (0.1-1.0); Monocytes % 5.6 % (1.7-9.3); Neutrophils % 68.9 % (37.0-80.0); Platelet Count 340 K/mm3 (142-424); Red Cell Distribution Width 12.5 % (11.5-17.5); White Blood Count 10.2 K/mm3 (4.8-10.8)
[2024-12-19 11:23] LABS: Alanine Aminotransferase 31 U/L (12-78); Albumin Level 4.7 g/dl (3.5-5.0); Alkaline Phosphatase 77 U/L (38-126); Anion Gap 12.4 mEq/L (5-15); Aspartate Amino Transferase 34 U/L (14-36); Bilirubin,Direct 0.3 mg/dl (0.0-0.4); Bilirubin,Indirect 1.3 mg/dL (0.0-0.9); Bilirubin,Total 1.6 mg/dl (0.2-1.3); Bilirubin,Unconjugated 1.2 mg/dL (0.0-1.1); Blood Urea Nitrogen 9 mg/dl (7-17); Calcium 9.5 mg/dl (8.4-10.2); Carbon Dioxide 29 mmol/L (22.0-30.0); Chloride 101 mmol/L (98-107); Chol/HDL Ratio 2.4 (1-3.5); Cholesterol 166 mg/dl (140-200); Estimated Glomerular Filt Rate 66 ml/min (>60); GFR (African American) 80 ML/MIN (>60); Glucose 96 mg/dl (74-100); HDL Cholesterol 70 mg/dl (40-60); Magnesium 2.3 mg/dl (1.6-2.3); Potassium 3.4 mmoL/L (3.5-5.1); Sodium 139 mmol/L (136-145); Total Protein,Serum 7.3 g/dl (6.3-8.2); Triglycerides 132 mg/dl (30-150); VLDL Cholesterol 26 mg/dL (0-40)
[2024-12-19 11:35] LABS: Direct LDL Cholesterol 56.78 mg/dL (100-129)
[2024-12-19 11:36] LABS: Free T4 (Free Thyroxine) 0.98 ng/dl (0.78-2.19)
[2024-12-19 11:54] LABS: Thyroid Stimulating Hormone 0.91 uIU/mL (0.465-4.68)
== END 2024-12-19 23:59 | disposition home or self-care (01) ==
LOC: LAB 09:58
PROVIDERS: PCP Nurse Practitioner; Visit Provider Nurse Practitioner
DX: R07.89 Other chest pain (principal); R06.09 Other forms of dyspnea; R40.0 Somnolence; R20.0 Anesthesia of skin; R20.2 Paresthesia of skin; I10 Essential (primary) hypertension
CPT/HCPCS: 36415; 80048; 80061; 80076; 83735; 84439; 84443; 85025

== ENCOUNTER 2025-05-09 13:49 | Outpatient (CLI) | payer OTHER, SELFPAY ==
--- OUTSIDE RECORDS SUMMARY | 2025-04-02 14:30 | XMS_ITS | Encounter Summary ---
Author Organization Healthcare Address [address] [place] [address] Care Team Providers Care Brush Hand Name Role Phone Pcp, No Primary Care Provider Unavailabl e Reason for Visit * Consultation (Routine) - Closed Specialty Diagnoses / Procedures Referred By Yadiel quintero Referred To Contact Oral Surgery Diagnoses Fibroma of mouth Mauro Ferrell, DMD [address] [address] Phone: tel: fax: [facility] partnership marketing manager Faculty [facility] [address] [place] [address] [address] [place] [address] Phone: tel: Referral ID Status Reason Start Date Expiration Date V isits Requested Visits Authorized [id number] Closed Specialty Services Required 03/19/2025 09/18/2026 1 1 Encounter Details Date Type Department Care Team (Late st Contact Info) Description 04/02/2025 2:30 PM EDT Office Visit [facility] learning coordinator [facility] [address] [phone] Mike Beckwith Oral mucosal lesion (Primary Dx) [...] documented as of this encounter Care Teams Brush Hand Relationship Specialty Start Date End Date Pcp, [place] [address] PCP - General Family Medicine 04/02/25 documented as of this encounter
--- OUTSIDE RECORDS SUMMARY | 2025-04-03 09:00 | XMS_ITS | Encounter Summary ---
Author Organization Healthcare Address [address] [place] [address] Care Team Providers Care Master Tax Advisor Name Role Phone Pcp, No Primary Care Provider Unavailabl e Encounter Details Date Type Department Care Team (Late st Contact Info) Description 04/03/2025 9:00 AM EDT Office Visit [facility] risk compliance analyst [facility] [address] [phone] Mike Beckwith Fibroma (Primary Dx) Social History Tobacco Use Types Packs/Day Years Used Date Smoking Tobacco: Never Smokeless Tobacco: Never Comments Unknown Sex and Gender Information Value Date Recorded Sex Assigned at Not on file Legal Sex Female 6:05 PM EDT Gender Identity Not on file Sexual Orientation Not on file documented as of this encounter Last Filed Vital Signs Vital Sign Reading Time Taken Comments Blood Pressure 114/67 04/03/2025 9:02 AM EDT Pulse 51 04/03/2025 9:02 AM EDT Temperature 36.8 C (98.2 F) 04/03/2025 9:02 AM EDT Respiratory Rate - - Oxygen Saturation 95% 04/03/2025 9:02 AM EDT Inhaled Oxygen Concentration - - Weight 87 kg (191 lb 12.8 oz) 04/03/2025 9:02 AM EDT Height 162.6 cm (5' 4 ) 04/03/2025 9:02 AM EDT Body Mass Index 32.92 04/03/2025 9:02 AM EDT documented in this encounter Miscellaneous Notes * Progress Notes - Miek Beckwith - 04/03/2025 9:00 AM EDT ORAL & MAXILLOFACIAL SURGERY - Operative Report Patient (ASA 2) presents to clinic for scheduled surgery - PMH and R/B/A's reviewed, informed consent updated. - A timeout was performed. - Pre-op Diagnosis: Lesion - Post-op Diagnosis: Same - Resident/Attending: Mike Beckwith / Dr. Ortega - Procedure: Excisional Biopsy of 3x3 right buccal mucosa mucosal colored raised Lesion - Estimated Blood Loss: Minimal DESCRIPTION OF PROCEDURE Local Anesthesia: - 1.8 mL 2% Lidocaine w/1:100,000 epi [x1] - 1.8 mL 0.5% Marcaine w/ 1:200,000 epi [x1] Throat screen was placed. Immediate pre-incision time-out performed. Excisional Biopsy of Lesion - Lesion identified. Using a sharp 15 blade, and elliptical incision was made within the lesion. It was then sharply dissected free with care to avoid nearby vital structures. Specimen placed in formalin. Surgical site copiously irrigated with NS. Soft tissue was re-approximated with 3-0 vicryl rapide. Hemostasis achieved with gauze. POST-OP Patient tolerated treatment well. Post-operative instructions were given orally and written to patient. Specimens: 1 specimen. Total specimen measuring 3 mm x 3 mm Drains: None Complications: None Prescriptions: - Peridex 0.12% Disp: 1 bottle Swish with 20mL for 30 seconds, then spit bid 1 refill - OTC Pain Meds Follow-Up: F/U: 2 weeks for biopsy results Mike Beckwith Cosigned by Ines Aguirre DDS at 04/11/2025 1:27 PM EDT Associated attestation - Ines Aguirre DDS - 04/11/2025 1:27 PM EDT I was present during all critical and matthews portions of the procedure(s) and immediately available [facility] services the entire duration. See resident note for details. documented in this encounter Plan of Treatment Not on file documented as of this encounter Procedures Procedure Name Priority Date/Time Associated Diagnosis Comments ACCESSION OF TISSUE, GROSS AND MICROSCOPIC EXAMINATION, PREPARATION AND TRANSMISSION OF WRITTEN REPORT Routine 04/03/2025 11:15 AM EDT Fibroma documented in this encounter Results * Oral Pathology Exam (04/03/2025 11:15 AM EDT) Gross Description A. Right Buccal Mucosa, The gross examination on April 03 reveals one irregular piece of white and miller soft tissue measuring 0.5x0.5x0.5 cm. The entire specimen was submitted for microscopic examination. A request for this from the treating clinician accompanied the specimen. 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 04/04/2025 9:43 AM [facility] ORAL PATHOLOGY Microscopic Description Microscopic examination reveals stratified squamous epithelium with underlying fibrous connective tissue. The epithelium is acanthotic and hyperorthokerat otic. The connective tissue is a densely collagenized nodular mass with scattered fibroblasts and chronic inflammatory cells. 04/04/2025 9:43 AM [facility] ORAL PATHOLOGY Final Diagnosis Right Buccal Mucosa: FIBROMA (FOCAL FIBROUS HYPERPLASIA), EXCISIONAL BIOPSY D10.39 04/04/2025 9:43 AM [facility] ORAL PATHOLOGY at 0943 EDT Tissue Buccal mucosa / Unknown Non-blood Collection / Unknown 04/03/2025 11:15 AM EDT 04/03/2025 11:37 AM EDT us Ines Nobles DDS LAB PATHOLOGY ORD ERABLES Final Result [facility] ORAL PATHOLOGY 800 [facility] Room [place] [phone] documented in this encounter Visit Diagnoses Diagnosis Fibroma- Primary Other benign neoplasm of connective and other soft tissue of unspecified site documented in this encounter Additional Health Concerns Assessment Noted Time A Body Mass Index follow-up plan has been documented for the patient 04/03/2025 12:59 PM EDT documented as of this encounter Care Teams Master Tax Advisor Relationship Specialty Start Date End Date Pcp, [place] [address] PCP - General Family Medicine 04/02/25 documented as of this encounter
--- OUTSIDE RECORDS SUMMARY | 2025-05-09 13:52 | XMS_ITS | Encounter Summary ---
Author Organization Healthcare Address [address] [place] [address] Care Team Providers Care Boilermaker Mechanic Name Role Phone Unavailable Primary Care Provider Unavailabl e Encounter Details Date Type Department Care Team (Late st Contact Info) Description 03/21/2025 Telephone [facility] director telehealth Clinic [address] [phone] Dental, Surgeon, [address] [place], [place] [id number] Social History Tobacco Use Types Packs/Day Years Used Date Smoking Tobacco: Never Assessed Comments Unknown Sex and Gender Information Value Date Recorded Sex Assigned at Not on file Legal Sex Female 6:05 PM EDT Gender Identity Not on file Sexual Orientation Not on file documented as of this encounter Miscellaneous Notes * Telephone Encounter - Renny Almonte - 03/21/2025 10:03 AM EDT Attempted to reach pt again for internal referral for a fibroma. No answer so left a vm advising ptto call back to coordinate appt. mg documented in this encounter Plan of Treatment Not on file documented as of this encounter Visit Diagnoses Not on filedocumented in this encounter
--- OUTSIDE RECORDS SUMMARY | 2025-05-09 13:52 | XMS_ITS | Encounter Summary ---
Author Organization Healthcare Address [address] [place] [address] Care Team Providers Care Big Data Developer Name Role Phone Pcp, No Primary Care Provider Unavailabl e Encounter Details Date Type Department Care Team (Latest Contact Info) Description 04/03/2025 Travel Social History Tobacco Use Types Packs/Day Years Used Date Smoking Tobacco: Never Smokeless Tobacco: Never Comments Unknown Sex and Gender Information Value Date Recorded Sex Assigned at Not on file Legal Sex Female 6:05 PM EDT Gender Identity Not on file Sexual Orientation Not on file documented as of this encounter Plan of Treatment Not on file documented as of this encounter Visit Diagnoses Not on filedocumented in this encounter Additional Health Concerns Assessment Noted Time A Body Mass Index follow-up plan has been documented for the patient 04/03/2025 12:59 PM EDT documented as of this encounter Care Teams Big Data Developer Relationship Specialty Start Date End Date Pcp, Gisela [address] [place] [address] PCP - General Family Medicine 04/02/25 documented as of this encounter
--- OUTSIDE RECORDS SUMMARY | 2025-05-09 13:52 | XMS_ITS | Encounter Summary ---
Author Organization Healthcare Address [address] [place] [address] Care Team Providers Care Molybdenum Steamer Operator Name Role Phone Unavailable Primary Care Provider Unavailabl e Encounter Details Date Type Department Care Team (Late st Contact Info) Description 03/20/2025 Telephone [facility] [address] [address] Dental, Surgeon, [address] [place], [place] [phone] Social History Tobacco Use Types Packs/Day Years Used Date Smoking Tobacco: Never Assessed Comments Unknown Sex and Gender Information Value Date Recorded Sex Assigned at Not on file Legal Sex Female 6:05 PM EDT Gender Identity Not on file Sexual Orientation Not on file documented as of this encounter Miscellaneous Notes * Telephone Encounter - Renny Almonte - 03/20/2025 9:39 AM EDT Attempted to reach pt for internal referral for a fibroma. No answer so left a vm advising pt to call back to coordinate appt. mg documented in this encounter Plan of Treatment Not on file documented as of this encounter Visit Diagnoses Not on filedocumented in this encounter
--- OUTSIDE RECORDS SUMMARY | 2025-05-09 13:52 | XMS_ITS | Clinical Summary ---
Author Organization [facility] Address [address] [place] [address] Care Team Providers Care Memory Care Director Name Role Phone Pcp, No Primary Care Provider Unavailabl e Allergies No known active allergies Medications ASPIRIN 81 MG chewable tablet Chew 1 tablet daily. Active omeprazole (PriLOSEC) [address] capsule Take 1 capsule by mouth daily. Do not crush or chew. Active hydroCHLOROthia zide (Microzide) 12.5 MG capsule Take 1 capsule by mouth daily. Active rosuvastatin (Crestor) 40 MG tablet Take 1 tablet by mouth daily. Active metoprolol succinate XL (Toprol-XL) 25 MG 24 hr tablet Take 1 tablet by mouth daily. Do not crush or chew. Active estradiol (Estrace) 0.1 MG/GM vaginal cream Insert 2 g into the vagina as needed. Active escitalopram (Lexapro) 10 MG tablet Take 1 tablet by mouth daily. Active Encounters Date Type Department Care Team Description 04/03/2025 9:00 AM EDT Office Visit [facility] [address] [phone] Mike Beckwith Fibroma (Primary Dx) 04/03/2025 Travel 04/02/2025 2:30 PM EDT Office Visit [facility] [address] [phone] Mike Beckwith Oral mucosal lesion (Primary Dx) 04/02/2025 Travel 03/26/2025 Telephone [facility] [address] [phone] Dental, Surgeon, 03/21/2025 Telephone [facility] [address] [address] Dental, SurgeonMD 03/20/2025 Telephone [facility] [address] [phone] Dental, SurgeonMD 03/19/2025 Community [facility] Community Practice [address] [place] [address] Mauro Ferrell, DMD Fibroma of mouth (Primary Dx) from Last 3 Months Social History Tobacco Use Types Packs/Day Years Used Date Smoking Tobacco: Never Smokeless Tobacco: Never Tobacco Cessation:Counseling Given: Not Answered Comments Unknown Sex and Gender Information Value Date Recorded Sex Assigned at Not on file Legal Sex Female 6:05 PM EDT Gender Identity Not on file Sexual Orientation Not on file Last Filed Vital Signs Vital Sign Reading [...] Mass Index 32.92 04/03/2025 9:02 AM EDT Plan of Treatment Health Maintenance Due Date Last Done Comments Dental Oral Exam 1972 Dental Prophylaxis 1972 Dental X-Ray: Bitewings 1972 Dental X-Ray: Full Mouth 1972 [facility]-Depression Screening 1972 [facility]-HIV Screening 1972 [facility]-Hepatitis C Screening 1972 [facility]-/Child/Adol SDOH Screenings 1972 [facility]- SDOH Screenings 1990 [facility]-Adult SDOH Screenings 1990 [facility]-Hepatitis B Vaccines (1 of 3 - 19+ 3-dose series) 12/06/1991 [facility]-Pap Smear 1993 [facility]-Cervical Cancer Screening 2002 [facility]-HPV/Cotest 2002 [facility]-DTaP,Tdap,and Td Vaccine s (1 - Tdap) 06/17/2006 06/16/2006 CT Colonography 2017 Colonoscopy 2017 FIT-DNA 2017 FIT 2017 FOBT 2017 Sigmoidoscopy 2017 [facility]-Colorectal Cancer Screening 2017 [facility]-Breast Cancer Screening 2022 [facility]Y-Pneumococcal Vaccine: 50 + Years (1 of 1 - PCV) 2022 [id number]-32 Vaccine (1 - 2023-25 season) 2024 [facility]-Influenza Vaccine (#1) 2025 [facility]-Zoster Vaccines Completed 05/19/2024, 05/14/2023 [facility]-Obesity Intervention Completed 025, 04/02/2025 HPV Vaccines Aged Out No longer eligi ble based on patient's age to complete this topic [facility]-HIB Vaccines Aged Out No longer e ligible based on patient's age to complete this topic [facility]-Hepatitis A Vaccines Aged Out No longer eligible based on patient's age to complete this topic UKY-IPV Vaccines Aged Out No longer e ligible based on patient's age to complete this topic [facility]Y-Rotavirus Vaccines Aged Out No lo nger eligible based on patient's age to complete this topic Procedures Procedure Name Priority Date/Time Associated Diagnosis Comments ACCESSION OF TISSUE, GROSS AND MICROSCOPIC EXAMINATION, PREPARATION AND TRANSMISSION OF WRITTEN REPORT Routine 04/03/2025 11:15 AM EDT Fibroma from Last 3 Months Results * Oral Pathology Exam (04/03/2025 11:15 AM EDT) Gross Description A. Right Buccal Mucosa, The gross examination on April 03 reveals one irregular piece of white and miller soft tissue measuring 0.5x0.5x0.5 cm. The entire specimen was submitted for microscopic examination. A request for this from the treating clinician accompanied the specimen. 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 04/04/2025 9:43 AM [facility] ORAL PATHOLOGY Microscopic Description Microscopic examination reveals stratified squamous epithelium with underlying fibrous connective tissue. The epithelium is acanthotic and hyperorthokerat otic. The connective tissue is a densely collagenized nodular mass with scattered fibroblasts and chronic inflammatory cells. 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 ORAL PATHOLOGY at 0943 EDT Tissue Buccal mucosa / Unknown Non-blood Collection / Unknown 04/03/2025 11:15 AM EDT 04/03/2025 11:37 AM EDT us Ines Nobles DDS LAB PATHOLOGY ORD ERABLES Final Result [facility] ORAL PATHOLOGY [address] [facility] [place] [address] from Last 3 Months Insurance [facility] MEDICAID Care Teams Memory Care Director Relationship Specialty Start Date End Date Pcp, No [address] [place] [address] PCP - General Family Medicine 04/02/25
--- OUTSIDE RECORDS SUMMARY | 2025-05-09 13:52 | XMS_ITS | Encounter Summary ---
Author Organization Healthcare Address [address] [place] [address] Care Team Providers Care Nurse Office Name Role Phone Unavailable Primary Care Provider Unavailabl e Encounter Details Date Type Department Care Team (Late st Contact Info) Description 03/26/2025 Telephone [facility] [address] [phone] Dental, Surgeon, [address] [place], [place] [phone] Social History Tobacco Use Types Packs/Day Years Used Date Smoking Tobacco: Never Assessed Comments Unknown Sex and Gender Information Value Date Recorded Sex Assigned at Not on file Legal Sex Female 6:05 PM EDT Gender Identity Not on file Sexual Orientation Not on file documented as of this encounter Miscellaneous Notes * Telephone Encounter - Sherly Quiroz - 03/26/2025 11:21 AM EDT Called to confirm appt date and time. Pt confirmed. documented in this encounter Plan of Treatment Not on file documented as of this encounter Visit Diagnoses Not on filedocumented in this encounter
--- OUTSIDE RECORDS SUMMARY | 2025-05-09 13:52 | XMS_ITS | Encounter Summary ---
Author Organization Healthcare Address [address] [place] [address] Care Team Providers Care Marine Service Manager Name Role Phone Pcp, No Primary Care Provider Unavailabl e Encounter Details Date Type Department Care Team (Latest Contact Info) Description 04/02/2025 Travel Social History Tobacco Use Types Packs/Day [...] documented as of this encounter Care Teams Marine Service Manager Relationship Specialty Start Date End Date Pcp, Gisela [address] [place] [address] PCP - General Family Medicine 04/02/25 documented as of this encounter
--- OUTSIDE RECORDS SUMMARY | 2025-05-09 13:52 | XMS_ITS | Encounter Summary ---
Author Organization Healthcare Address [address] [place] [address] Care Team Providers Care Shift Superintendent Caustic Cresylate Name Role Phone Pcp, No Primary Care Provider Unavailabl e Reason for Referral * Consultation (Routine) - Closed Specialty Diagnoses / Procedures Referred By Yadiel quintero Referred To Contact Oral Surgery Diagnoses Fibroma of mouth Mauro Ferrell DMD [address] [place] [address] [address] Phone: tel: fax: [facility] anger control counselor Faculty Clinic [address] [place] [address] [address] [place] [address] Phone: tel: Referral ID Status Reason Start Date Expiration Date V isits Requested Visits Authorized [id number] Closed Specialty Services Required 03/19/2025 09/18/2026 1 1 Encounter Details Date Type Department Care Team (Late st Contact Info) Description 03/19/2025 Community [facility] Community Practice [address] [place] [address] Mauro Ferrell DMD [address] [phone] Fibroma of mouth (Primary Dx) Social History Tobacco Use Types Packs/Day Years Used Date Smoking Tobacco: Never Assessed Comments Unknown Sex and Gender Information Value Date Recorded Sex Assigned at Not on file Legal Sex Female 6:05 PM EDT Gender Identity Not on file Sexual Orientation Not on file documented as of this encounter Plan of Treatment Scheduled Referrals Name Type Priority Associated Diagnoses Order Schedule Ambulatory referral to Oral Maxillofacial Surgery Outpatient Referral Routine Fibroma of mouth Ordered: 03/19/2025 documented as of this encounter Visit Diagnoses Diagnosis Fibroma of mouth- Primary documented in this encounter Care Teams Shift Superintendent Caustic Cresylate Relationship Specialty Start Date End Date Pcp, Gisela [address] [place] [address] PCP - General Family Medicine 04/02/25 documented as of this encounter
[2025-05-09 14:41] LABS: Hematocrit 40.7 % (37.0-47.0); Hemoglobin 13.6 g/dL (12.2-16.2); Immature Granulocytes % 0.3 %; Mean Corpuscular HGB Conc 33.4 g/dL (31.8-35.4); Mean Corpuscular Hemoglobin 31.1 pg (27.0-31.2); Mean Corpuscular Volume 93.1 fl (81-99); Nucleated Red Blood Cells % 0 %; Platelet Count 288 K/mm3 (142-424); Red Blood Count 4.37 M/mm3 (4.20-5.40); Red Cell Distribution Width-SD 43.5 fL; White Blood Count 6.5 K/mm3 (4.8-10.8)
[2025-05-09 16:13] LABS: Chloride 99 mmol/L (98-107); Sodium 135 mmol/L (136-145)
[2025-05-09 16:14] LABS: Potassium 4.1 mmoL/L (3.5-5.1)
[2025-05-09 16:16] LABS: Anion Gap 9.1 mEq/L (5-15); Blood Urea Nitrogen 10 mg/dl (7-17); Carbon Dioxide 31 mmol/L (22.0-30.0); Creatinine,Serum 0.70 mg/dl (0.52-1.04); Estimated Glomerular Filt Rate 88 ml/min (>60); GFR (African American) 106 ML/MIN (>60)
[2025-05-09 16:17] LABS: Calcium 9.2 mg/dl (8.4-10.2); Glucose 105 mg/dl (74-100)
[2025-05-09 16:40] LABS: Triiodothryronine (T3) Uptake 28 % (23.5-40.5)
[2025-05-09 16:42] LABS: Free Thyroxine Index 2.3 ug/dL (5.93-13.13); T4 (Thyroxine) 8.1 ug/dl (5.53-11.0)
[2025-05-09 16:55] LABS: Thyroid Stimulating Hormone 0.41 uIU/mL (0.465-4.68)
[2025-05-09 17:22] LABS: Hemoglobin A1C 5.0 % (4.0-6.0)
== END 2025-05-09 23:59 | disposition home or self-care (01) ==
LOC: LAB 13:50
PROVIDERS: PCP Nurse Practitioner; Visit Provider Nurse Practitioner
DX: E78.5 Hyperlipidemia, unspecified (principal); I10 Essential (primary) hypertension; R40.0 Somnolence; G47.9 Sleep disorder, unspecified; R20.0 Anesthesia of skin; R20.2 Paresthesia of skin
CPT/HCPCS: 36415; 80048; 83036; 84436; 84443; 84479; 85025

== ENCOUNTER 2025-05-24 09:20 | Outpatient (CLI) | payer OTHER, SELFPAY ==
--- OUTSIDE RECORDS SUMMARY | 2025-04-02 14:30 | XMS_ITS | Encounter Summary ---
Author Organization Healthcare Address [address] [place] [address] Care Team Providers Care Land Management Forester Name Role Phone Pcp, No Primary Care Provider Unavailabl e Reason for Visit * Consultation (Routine) - Closed Specialty Diagnoses / Procedures Referred By Yadiel quintero Referred To Contact Oral Surgery Diagnoses Fibroma of mouth Mauro Ferrell, DMD [address] [address] Phone: tel: fax: [facility] administrative services coordinator [facility] [address] [place] [address] [address] [place] [address] Phone: tel: Referral ID Status Reason Start Date Expiration Date V isits Requested Visits Authorized [id number] Closed Specialty Services Required 03/19/2025 09/18/2026 1 1 Encounter Details Date Type Department Care Team (Late st Contact Info) Description 04/02/2025 2:30 PM EDT Office Visit [facility] manual arts therapy teacher [facility] [address] [phone] Mike Beckwith Oral mucosal lesion (Primary Dx) Social History Tobacco Use Types Packs/Day Years Used Date Smoking Tobacco: Never Smokeless Tobacco: Never Tobacco Cessation:Counseling Given: Not Answered Comments Unknown Sex and Gender Information Value Date Recorded Sex Assigned at Not on file Legal Sex Female 6:05 PM EDT Gender Identity Not on file Sexual Orientation Not on file documented as of this encounter Last Filed Vital Signs Vital Sign Reading Time Taken Comments Blood Pressure 126/70 04/02/2025 2:37 PM EDT Pulse 52 04/02/2025 2:37 PM EDT Temperature 36.7 C (98.1 F) 04/02/2025 2:37 PM EDT Respiratory Rate - - Oxygen Saturation 98% 04/02/2025 2:37 PM EDT Inhaled Oxygen Concentration - - Weight 86.8 kg (191 lb 6.4 oz) 04/02/2025 2:37 P M EDT Height 162.6 cm (5' 4 ) 04/02/2025 2:37 PM EDT Body Mass Index 32.85 04/02/2025 2:37 PM EDT documented in this encounter Miscellaneous Notes * Progress Notes - Mike Beckwith S - 04/02/2025 2:30 PM EDT Images from the original note were not included. .jtOral & Maxillofacial Surgery Evaluation CC: ???I have a lesion in my mouth.?? HPI: Minda Mathews is a 54 y.o. female with PMH HLD, HTN, depression and self reported Leaky valve who presents for evaluation and treatment of 3x3 mm raised mucosal lesion on right buccal mucosa referred from Dentist for possible fibroma. Pt states she is constantly biting it when trying to eat. Referred from DMD for evaluation of 3x3 mm raised mucosal lesion on right buccal mucosa lesion was discovered by Dr. Ferrell on 03/19. Does recall recurrent mastication trauma trauma . No previous smoothing of lingual cusps performed. Pt also has bilateral linea alba associated withlesion. No metal in contact with tongue. Reports no previous mucosal lesions. Denies dysphagia, paresthesia, trismus, swelling, f/c/n/v. Review of Systems: A 14-point review of systems was performed and is negative except as noted in HPI. PAST MEDICAL HISTORY: Past Medical History: Diagnosis Date Depression HLD (hyperlipidemia) HTN (hypertension) PAST SURGICAL HISTORY: No past surgical history on file. Medications: Current Outpatient Medications on File Prior to Visit Medication Sig Dispense Refill ASPIRIN 81 MG chewable tablet Chew 1 tablet daily. escitalopram (Lexapro) 10 MG tablet Take 1 tablet by mouth daily. estradiol (Estrace) 0.1 MG/GM vaginal cream Insert 2 g into the vagina as needed. hydroCHLOROthiazide (Microzide) 12.5 MG capsule Take 1 capsule by mouth daily. metoprolol succinate XL (Toprol-XL) 25 MG 24 hr tablet Take 1 tablet by mouth daily. Do not crush or chew. omeprazole (PriLOSEC) [address] capsule Take 1 capsule by mouth daily. Do not crush or chew. rosuvastatin (Crestor) 40 MG tablet Take 1 tablet by mouth daily. No current facility-administered medications on file prior to visit. Allergies: No Known Allergies Social History: Smoking: denies Alcohol: denies Illicit drugs: denies Family History: Family History[1] OBJECTIVE: Vitals: 04/02/25 1437 BP: 126/70 Pulse: 52 Temp: 36.7 ??C (98.1 ??F) SpO2: 98% Focused PE: Gen: NAD. Head/Face: NCAT, no facial or neck swellings. Oral: MARI: >35 mm. Tongue FROM, FOM soft. Lesion mucosal colored, 3x3 mm raised lesion on right buccal mucosa. Fair dentition and [place]. Neck: Soft, supple. Trachea midline. No masses/goiter. No LAD. FROM. Normal extension. CVS: well perfused Pulm: Non-labored breathing on room air Assessment/Plan: Minda Mathews is a 54 y.o. 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 Pt has current trauma associated with lesion (chronic cheek biting) and presents w/ bilateral linea albea. -Discussed R/B/I and answered all questions. -Discussed possible complications including, but not limited to, infection, bleeding, swelling, damage to adjacent teeth, nerve injury, requiring secondary surgery -Schedule for biopsy local anesthesia. Mike Beckwith [1] No family history on file. Cosigned by Lucio Cope DMD, MD at 04/04/2025 3:22 PM EDT Associated attestation - Lucio Cope DMD, MD - 04/04/2025 3:22 PM EDT I saw and evaluated the patient with the resident/fellow. I discussed the case with the resident/fellow and agree with the findings and plan as documented. documented in this encounter Plan of Treatment Scheduled Orders Name Type Priority Associated Diagnoses Orde r Schedule COMPREHENSIVE ORAL EVALUATION - NEW OR ESTABLISHED PATIENT Dental Routine 1 Occurrence s starting 04/02/2025 documented as of this encounter Visit Diagnoses Diagnosis Oral mucosal lesion- Primary documented in this encounter Additional Health Concerns Assessment Noted Time A Body Mass Index follow-up plan has been documented for the patient 04/03/2025 7:34 AM EDT documented as of this encounter Care Teams Land Management Forester Relationship Specialty Start Date End Date Pcp, [place] [address] PCP - General Family Medicine 04/02/25 documented as of this encounter
--- OUTSIDE RECORDS SUMMARY | 2025-04-03 09:00 | XMS_ITS | Encounter Summary ---
Author Organization Healthcare Address [address] [place] [address] Care Team Providers Care Radiological Technician Name Role Phone Pcp, No Primary Care Provider Unavailabl e Encounter Details Date Type Department Care Team (Late st Contact Info) Description 04/03/2025 9:00 AM EDT Office Visit [facility] shelter director [facility] [address] [phone] Mike Beckwith Fibroma (Primary Dx) Social History [...] Notes * Progress Notes - Mike Beckwith - 04/03/2025 9:00 AM EDT ORAL [...] portions of the procedure(s) and immediately available [facility] services the entire duration. See resident [...] diagnosis is Fibroma, Papilloma. 04/04/2025 9:43 AM [facility] ORAL PATHOLOGY Microscopic Description Microscopic examination reveals stratified squamous epithelium with underlying fibrous connective tissue. The epithelium is acanthotic and hyperorthokerat otic. The connective tissue is a densely collagenized nodular mass with scattered fibroblasts and chronic inflammatory cells. 04/04/2025 9:43 AM [facility] ORAL PATHOLOGY Final Diagnosis Right Buccal Mucosa: FIBROMA (FOCAL FIBROUS HYPERPLASIA), EXCISIONAL BIOPSY D10.39 04/04/2025 9:43 AM [facility] ORAL PATHOLOGY at 0943 EDT Tissue Buccal mucosa / Unknown Non-blood Collection / Unknown 04/03/2025 11:15 AM EDT 04/03/2025 11:37 AM EDT us Ines Nobles DDS LAB PATHOLOGY ORD ERABLES Final Result [facility] ORAL PATHOLOGY 800 [facility] Room [place] [phone] documented in this encounter Visit Diagnoses Diagnosis Fibroma- Primary Other benign neoplasm of connective and other soft tissue of unspecified site documented in this encounter Additional Health Concerns Assessment Noted Time A Body Mass Index follow-up plan has been documented for the patient 04/03/2025 12:59 PM EDT documented as of this encounter Care Teams Radiological Technician Relationship Specialty Start Date End Date Pcp, [place] [address] PCP - General Family Medicine 04/02/25 documented as of this encounter
--- OUTSIDE RECORDS SUMMARY | 2025-05-24 09:37 | XMS_ITS | Clinical Summary ---
Author Organization [facility] Address [address] [place] [address] Care Team Providers Care Protective Signal Operations Supervisor Name Role Phone Pcp, No Primary Care [...] 04/03/2025 9:00 AM EDT Office Visit [facility] [address] [phone] Mike Beckwith Fibroma (Primary Dx) 04/03/2025 Travel 04/02/2025 2:30 PM EDT Office Visit [facility] [address] [phone] Mike Beckwith Oral mucosal lesion (Primary Dx) 04/02/2025 Travel 03/26/2025 Telephone [facility] [address] [phone] Shanika, Surgeon, 03/21/2025 Telephone [facility] [address] [phone] Surgeon Voss MD 03/20/2025 Telephone [facility] [address] [phone] Surgeon Voss MD 03/19/2025 Community Orders Community Practice [address] [place] [address] Mauro Ferrell, DMD Fibroma of mouth (Primary [...] [facility]Y-HIV Screening 1972 [facility]-Hepatitis C Screening 1972 [facility]-Infant/Child/Adol SDOH Screenings 1972 [facility]- SDOH Screenings 1990 [...] Years (1 of 1 - PCV) 2022 [id number]-91 Vaccine (1 - 2023-25 season) 2024 [facility]-Influenza [...] diagnosis is Fibroma, Papilloma. 04/04/2025 9:43 AM EDT [facility] DENT[facility] ORAL PATHOLOGY Microscopic Description Microscopic examination reveals stratified squamous epithelium with underlying fibrous connective tissue. The epithelium is acanthotic and hyperorthokerat otic. The connective tissue is a densely collagenized nodular mass with scattered fibroblasts and chronic inflammatory cells. 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 04/04/2025 9:43 AM EDT [facility] DENTISTRY ORAL PATHOLOGY at 0943 EDT Tissue Buccal mucosa / Unknown Non-blood Collection / Unknown 04/03/2025 11:15 AM EDT 04/03/2025 11:37 AM EDT us Ines Nobles DDS LAB PATHOLOGY ORD ERABLES Final Result [facility] ORAL PATHOLOGY [address] [facility] [place] [address] from Last 3 Months Insurance [facility] MEDICAID [facility] MEDICAID Care Teams Protective Signal Operations Supervisor Relationship Specialty Start Date End Date Pcp, No [address] [place] [address] PCP - General Family Medicine 04/02/25
--- OUTSIDE RECORDS SUMMARY | 2025-05-24 09:38 | XMS_ITS | Encounter Summary ---
Author Organization Healthcare Address [address] [place] [address] Care Team Providers Care Mechanical Systems Engineer Name Role Phone Pcp, No Primary Care [...] documented as of this encounter Care Teams Mechanical Systems Engineer Relationship Specialty Start Date End Date Pcp, Gisela [address] [place] [address] PCP - General Family Medicine 04/02/25 documented as of this encounter
--- OUTSIDE RECORDS SUMMARY | 2025-05-24 09:38 | XMS_ITS | Encounter Summary ---
Author Organization Healthcare Address [address] [place] [address] Care Team Providers Care Skimmer Scoop Operator Name Role Phone Unavailable Primary Care Provider Unavailabl e Encounter Details Date Type Department Care Team (Late st Contact Info) Description 03/26/2025 Telephone [facility] [address] [phone] Shanika, Surgeon, [address] [place], [place] [phone] Social History Tobacco Use Types Packs/Day Years [...]
--- OUTSIDE RECORDS SUMMARY | 2025-05-24 09:38 | XMS_ITS | Encounter Summary ---
Author Organization Healthcare Address [address] [place] [address] Care Team Providers Care Rifle Case Repairer Name Role Phone Pcp, No Primary Care Provider Unavailabl e Reason for Referral * Consultation (Routine) - Closed Specialty Diagnoses / Procedures Referred By Yadiel quintero Referred To Contact Oral Surgery Diagnoses Fibroma of mouth Mauro Ferrell DMD [address] [place] [address] [address] Phone: tel: fax: [facility] bioinformatics scientist Faculty Clinic [address] [place] [address] [address] [place] [address] Phone: tel: Referral ID Status Reason Start Date Expiration Date V isits Requested Visits Authorized [id number] Closed Specialty Services Required 03/19/2025 09/18/2026 1 1 Encounter Details Date Type Department Care Team (Late st Contact Info) Description 03/19/2025 Community [facility] Community Practice [address] [place] [address] Mauro Ferrell DMD [address] [phone] Fibroma of mouth (Primary Dx) Social History [...] Primary documented in this encounter Care Teams Rifle Case Repairer Relationship Specialty Start Date End Date Pcp, Gisela [address] [place] [address] PCP - General Family Medicine 04/02/25 documented as of this encounter
--- OUTSIDE RECORDS SUMMARY | 2025-05-24 09:38 | XMS_ITS | Encounter Summary ---
Author Organization Healthcare Address [address] [place] [address] Care Team Providers Care Soda Flaker Name Role Phone Pcp, No Primary Care [...] documented as of this encounter Care Teams Soda Flaker Relationship Specialty Start Date End Date Pcp, Gisela [address] [place] [address] PCP - General Family Medicine 04/02/25 documented as of this encounter
--- NOTE | 2025-05-24 09:45 | CA_ITS ---
APPROVED REPORT EXAM: Comprehensive 2D, Doppler, and color-flow Echocardiogram Metal Die Finisher: Reina Ritchie CRT Ht: 5 ft 4 in Wt: 194lbs BSA: 1.93 BP: 139/69 mmHg Indications: Chest Pain, Shortness of Breath 2D Dimensions LA Volume 39.20 mL LA Volume Index 19.80 mL/m2 (M/F) 16-34 M-Mode Dimensions RVDd 2.14 cm (0.9-2.6) LA Diam 3.95 cm (1.9-4.0) LVDd 4.70 cm (3.5-5.7) LVDs 3.06 cm (3.5-5.7) IVSd 1.39 cm (0.6-1.1) PWd 1.17 cm (0.6-1.1) EF (Teich) 64.20% FS 34.90% EDV (Teich) 102.40 mL TAPSE 3.03 (<1.7) ESV (Teich) 36.70 mL LV Diastology E Decel Time 147 (160-240 msec) E/A Ratio 1.32 MED A' 6.00 cm/s LAT A' 7.30 cm/s Aortic Valve AI PHT 732.00 ms AO Peak GR. 8.70 mmHg Mitral Valve MV A Velocity 71.0 (40-130 cm/s) E/A Ratio 1.32 Pulmonary Valve PV Peak Velocity 160.0 (50-150 cm/s) Tricuspid Valve TR P. Velocity 219.00 cm/s RAP Estimate 10.00 mmHg RVSP 29.10 mmHg Left Ventricle The left ventricle is normal size. Left ventricular systolic function is normal. The left ventricular ejection fraction is within the normal range. There is increased left ventricular wall thickness. There is normal LV segmental wall motion. The left ventricular diastolic function is normal. LVEF is 55% Right Ventricle The right ventricle is mildly dilated. The right ventricular systolic function is normal. Atria The left atrium is mildly dilated. The right atrium is mildly dilated. There is no color Doppler evidence of interatrial shunt. Aortic Valve The aortic valve is mildly thickened. There is no hemodynamically significant aortic valvular stenosis. Mild aortic regurgitation is present. Mitral Valve The mitral valve is mildly thickened. No evidence of mitral valve stenosis. Mild mitral regurgitation is present. Tricuspid Valve The tricuspid valve leaflets are thin and pliable. Mild tricuspid regurgitation. RVSP is 20-25 mmHg. Pulmonic Valve The pulmonary valve is grossly normal in structure. Trace pulmonic valve regurgitation is present. Great Vessels The aortic root is normal in size. IVC is normal in size and collapses >50% with inspiration. Pericardium There is no pericardial effusion. Other Information Study Quality: Fair Conclusion Normal biventricular systolic function. Mild RV dilation. Mild biatrial dilation. Mild AI, mild MR, mild TR. Electronically signed by : Alberta Haile MD 05/26/2025 21:30:43
== END 2025-05-24 23:59 | disposition home or self-care (01) ==
LOC: RT 09:20
PROVIDERS: PCP Nurse Practitioner; Visit Provider Nurse Practitioner
DX: I08.8 Other rheumatic multiple valve diseases (principal); I10 Essential (primary) hypertension; E78.5 Hyperlipidemia, unspecified; R40.0 Somnolence; G47.9 Sleep disorder, unspecified; R20.0 Anesthesia of skin; R20.2 Paresthesia of skin
CPT/HCPCS: 93306

== ENCOUNTER → 2025-06-18 06:39 | Outpatient (CLI) | payer OTHER, SELFPAY ==
--- OUTSIDE RECORDS SUMMARY | 2025-06-18 06:41 | XMS_ITS | Encounter Summary ---
Author Organization Healthcare Address [address] [place] [address] Care Team Providers Care Computer Programming Manager Name Role Phone Pcp, No Primary Care Provider Unavailabl e Reason for Referral * Consultation (Routine) - Closed Specialty Diagnoses / Procedures Referred By Yadiel quintero Referred To Contact Oral Surgery Diagnoses Fibroma of mouth Mauro Ferrell DMD [address] [place] [address] Phone: tel: fax: [facility] senior commissary agent Faculty Clinic [address] [place] [address] [address] [place] [address] Phone: tel: Referral ID Status Reason Start Date Expiration Date V isits Requested Visits Authorized [id number] Closed Specialty Services Required 03/19/2025 09/18/2026 1 1 Encounter Details Date Type Department Care Team (Late st Contact Info) Description 03/19/2025 Community [facility] Community [facility] [address] [place] [address] Mauro Ferrell DMD [address] [phone] Fibroma of mouth (Primary Dx) Social History [...] Primary documented in this encounter Care Teams Computer Programming Manager Relationship Specialty Start Date End Date Pcp, Gisela [address] [place] [address] PCP - General Family Medicine 04/02/25 documented as of this encounter
--- OUTSIDE RECORDS SUMMARY | 2025-06-18 06:41 | XMS_ITS | Clinical Summary ---
Author Organization [facility] Address [address] [place] [address] Care Team Providers Care Chief Compliance Officer Name Role Phone Pcp, No Primary Care [...] 04/03/2025 9:00 AM EDT Office Visit [facility] [address] [phone] Mike Beckwith Fibroma (Primary Dx) 04/03/2025 Travel 04/02/2025 2:30 PM EDT Office Visit [facility] [address] [phone] Mike Beckwith Oral mucosal lesion (Primary Dx) 04/02/2025 Travel 03/26/2025 Telephone [facility] [address] [phone] Shanika Surgeon, 03/21/2025 Telephone [facility] [address] [address] Surgeon Voss MD 03/20/2025 Telephone [facility] [address] [phone] Surgeon Voss MD 03/19/2025 Community Orders Community Practice [address] [place] [address] Mauro Ferrell, DMD Fibroma of mouth (Primary [...] Years (1 of 1 - PCV) 2022 [id number] Vaccine (1 - 2023-25 season) 2025 [facility]-Influenza Vaccine (#1) 2025 [facility]-Zoster Vaccines Completed [...] is Fibroma, Papilloma. 04/04/2025 9:43 AM EDT [facility] DENTIST[facility] ORAL PATHOLOGY Microscopic Description Microscopic examination reveals stratified squamous epithelium with underlying fibrous connective tissue. The epithelium is acanthotic and hyperorthokerat otic. The connective tissue is a densely collagenized nodular mass with scattered fibroblasts and chronic inflammatory cells. 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 04/04/2025 9:43 AM EDT [facility] DENTISTRY ORAL PATHOLOGY at 0943 EDT Tissue Buccal mucosa / Unknown Non-blood Collection / Unknown 04/03/2025 11:15 AM EDT 04/03/2025 11:37 AM EDT us Ines Nobles DDS LAB PATHOLOGY ORD ERABLES Final Result [facility] ORAL PATHOLOGY [address] [place] [address] from Last 3 Months Insurance [facility] MEDICAID [facility] MEDICAID Care Teams Chief Compliance Officer Relationship Specialty Start Date End Date Pcp, No [address] [place] [address] PCP - General Family Medicine 04/02/25
== END ==
LOC: SL 06:39
PROVIDERS: PCP Nurse Practitioner; Visit Provider Nurse Practitioner
DX: G47.33 Obstructive sleep apnea (adult) (pediatric) (principal); G47.36 Sleep related hypoventilation in conditions classified elsewhere; E78.5 Hyperlipidemia, unspecified; I10 Essential (primary) hypertension; R40.0 Somnolence; R20.0 Anesthesia of skin; R20.2 Paresthesia of skin
CPT/HCPCS: G0399

== ENCOUNTER 2025-09-03 10:40 | Day surgery (SDC) | payer OTHER, SELFPAY ==
--- NOTE | 2025-08-24 13:07 | EXP.HP ---
History of Present Illness *Admission Date: 09/03/25 *History of present illness: Mrs. Mathews is a 54-year-old female who is here for diagnostic EGD. She does have excessive heartburn and reflux at nighttime even though she is on omeprazole 40 mg daily. She does report a lot of bloating, belching and gassiness. She also reports some dysphagia and globus sensation. She will sometimes have food regurgitation. She reports no nausea or vomiting. The patient does have chronic outlet dysfunction constipation. She did have a colonoscopy with me in July 2024 which was normal except for small internal hemorrhoids. The examination is deemed medically necessary for diagnostic EGD. The patient has been seen, interviewed and examined prior to the procedure by both myself and the anesthesia provider. [facility] Disclaimer: The information contained in this section may have been updated after the patient was seen, as this information can be updated by other users. Medical History Obesity (BMI 30.0-34.9) Right hand pain Left hand pain Palpitations GERD (gastroesophageal reflux disease) HLD (hyperlipidemia) HTN (hypertension) Family history of ischemic heart disease Edema of hand Chest pain Surgical History History of cardiac cath H/O: hysterectomy Hx of section Hx laparoscopic cholecystectomy Family History Father Coronary artery disease Colon cancer Social History Smoking Status: Never smoker alcohol intake: never substance use type: denies use current occupational status: employed Travel in the last 8 weeks?: None caffeine: No Have you lived/traveled outside [place] in past 30 days?: No Contact w/someone who lives/traveled outside US past 30 days?: No Exposure to someone with infectious disease in past 14 days?: No Do you have a fever (greater than 100.4 F or 38 C)?: No Have you tested positive for COVID-19?: No Exposed to someone with COVID-19 in past 14 days?: No Do you have a sore throat?: No Do you have a cough?: No Do you have any weakness?: No Do you have any diarrhea?: No Are you experiencing any unusual bleeding?: No Do you have any muscle aches/pain?: No Do you have any abdominal pain?: No Are you experiencing loss of taste or smell?: No Other Medical History Have you received the Flu Vaccine for this season: No Have you received the Pneumonia Vaccine: No Review of Systems Review of Systems Review of systems (narrative): Negative *Cardiovascular Comments: Negative *Gastrointestinal Comments: Negative *Genitourinary Comments: Negative *Musculoskeletal Comments: Negative *Neurologic Comments: Negative Meds Home Medications and Allergies Home Medications ?Medication ?Instructions ?Recorded ?Confirmed ?Type omeprazole 40 mg capsule,delayed 40 mg PO DAILY Acid Reflux #90 caps 02/07/25 09/03/25 Rx release aspirin 81 mg tablet,delayed 81 mg PO DAILY HEART HEALTH #90 06/11/25 09/03/25 Rx release (Adult Low Dose Aspirin) tabs hydrochlorothiazide 12.5 mg tablet 12.5 mg PO DAILY Fluid #90 tabs 06/11/25 09/03/25 Rx rosuvastatin 40 mg tablet 40 mg PO DAILY Cholesterol #90 tabs 06/11/25 09/03/25 Rx tirzepatide (weight loss) 2.5 2.5 mg (0.5 mL) SQ WEEKLY 30 days 06/11/25 09/03/25 Rx mg/0.5 mL subcutaneous pen #2.5 mL injector (Zepbound) biotin 5 mg capsule 5 mg PO DAILY 06/27/25 09/03/25 History coenzyme Q10 75 mg capsule (Ultra 75 mg PO DAILY 06/27/25 09/03/25 History CoQ10) melatonin 5 mg capsule 5 mg PO DAILY 06/27/25 09/03/25 History plecanatide 3 mg tablet (Trulance) 3 mg PO DAILY #90 tabs 07/09/25 09/03/25 Rx metoprolol succinate 25 mg 25 mg PO DAILY Hypertension #90 08/13/25 09/03/25 Rx tablet,extended release 24 hr tabs (Toprol XL) bupropion HCl 150 mg 24 hr tablet, 150 mg PO .each morning 30 days 08/24/25 09/03/25 Rx extended release (Wellbutrin XL) #30 tabs doxepin 10 mg capsule 10 mg PO HS 30 days #30 caps 08/24/25 09/03/25 Rx sertraline 50 mg tablet 150 mg (3 x 50 mg) PO DAILY 30 08/24/25 09/03/25 Rx days #90 tabs bupropion HCl 150 mg 24 hr tablet, 150 mg PO DAILY 09/03/25 09/03/25 History extended release (Wellbutrin XL) New Prescriptions to Start Prescriptions: Allergies Allergy/AdvReac Type Severity Reaction Status Date / Time No Known Allergies Allergy Verified 08/24/25 08:31 Exam *Routine HEENT Exam Head: Present normocephalic Eye: Present EOMI and PERRL ENT: Present mucous membranes moist *Routine Neck Exam Neck: Present supple *Routine Respiratory Exam Respiratory: Present CTA bilaterally *Routine Cardiovascular Exam Cardiovascular: Present RRR *Routine Abdominal Exam Abdominal: Present soft and normoactive bowel sounds; Absent tenderness *Routine Rectal Exam Rectal:: deferred *Routine Genitalia Exam Genitalia:: deferred *Routine Extremities Exam Extremities: Absent cyanosis, clubbing or edema *Routine Skin Exam Skin: Present warm; Absent rash *Routine Neurological Exam Neurological: Present alert and oriented X3 Assessment and Plan *Assessment and plan (1) Globus sensation: Status: Acute Category: Medical Code(s): R09.A2 - Foreign body sensation, throat (2) Regurgitation of food: Status: Acute Category: Medical Code(s): R11.10 - Vomiting, unspecified (3) Bloating: Status: Acute Category: Medical Code(s): R14.0 - Abdominal distension (gaseous) (4) Dysphagia: Status: Acute Category: Medical Code(s): R13.10 - Dysphagia, unspecified (5) GERD (gastroesophageal reflux disease): Status: Acute Qualifiers: Esophagitis presence: esophagitis presence not specified Qualified Code(s): K21.9 - Gastro-esophageal reflux disease without esophagitis Category: Medical Code(s): K21.9 - Gastro-esophageal reflux disease without esophagitis (6) Heartburn: Status: Acute Category: Medical Code(s): R12 - Heartburn Plan A/P: 1. GERD/heartburn?intractable with bloating, belching, regurgitation, dysphagia and globus sensation is the preprocedural diagnosis. The patient will be anesthetized/sedated using MAC sedation. The patient has been seen and examined. Cardiac and lung assessment prior to the examination is stable. Proceed with planned diagnostic EGD.
[2025-08-28 13:04] VITALS: BMI 33.9
--- NOTE | 2025-09-03 07:10 | HMH.PROCNOTE ---
[facility] Procedure Note Date: 09/03/25 Time: 13:32 Procedure Note:: Upper Endoscopy Procedure Report: Esophagogastroduodenoscopy with cold biopsies and TTS balloon dilation Endoscopost: Ozzy Suárez II, MD Referring Physician: Lindsey Powell PA-C Date of Procedure: September 03, 2025 Equipment: Olympus GIF-1100 standard upper endoscope Sedation: MAC sedation Indications: Mrs. Mathews is a 54-year-old female who is here for diagnostic EGD. She does have excessive heartburn and reflux at nighttime even though she is on omeprazole 40 mg daily. She does report a lot of bloating, belching and gassiness. She also reports some dysphagia and globus sensation. She will sometimes have food regurgitation. She reports no nausea or vomiting. The patient does have chronic outlet dysfunction constipation. She was given samples of Trulance (Maricruz Stump [employer]). She did have a colonoscopy with wi in July 2024 which was normal except for small internal hemorrhoids. The examination is deemed medically necessary for diagnostic EGD. Procedure: Prior to the procedure, a history and physical exam was performed, and patient's medications and allergies were reviewed. The risks, benefits and alternatives of the sedation and procedure were discussed with the patient. All questions were answered and informed consent was obtained. The patient was brought to the procedure room. Patient identification and proposed procedure were verified by the physician and the nurse. The patient was placed in a left lateral decubitus position and the scope was passed under direct vision. Throughout the procedure, the patient's blood pressure, pulse, and oxygen saturations were monitored continuously. The upper GI endoscopy was accomplished without difficulty. The patient tolerated the procedure well. Findings: The scope was passed directly into the upper esophagus and advanced to the third portion of the duodenum. The post bulbar duodenum, ampulla and duodenal bulb were normal with normal mucosa and conniventes. 2 cold biopsies were taken from the second portion of the duodenum for the disaccharidase assay. The scope was withdrawn through a normal duodenal bulb and pylorus into the stomach. There was bile reflux with moderate linear reactive gastropathy of the antrum. The body and fundus of the stomach were normal. Cold biopsies were taken from the antrum/incisura. Upon retroflexion there was a small 2 cm hiatal hernia. The scope was then withdrawn into the esophagus. There was no evidence of reflux esophagitis or Sheridan's. There were no rings, strictures, webs, corrugation or furrowing. There was no inlet patch or candidiasis. There were tertiary contractions and evidence of moderate esophageal dysmotility. The entire esophagus was dilated to 60 [place]/20 mm with a TTS hydrostatic balloon. There was mild resistance at the cricopharyngeus. The remainder of the esophageal mucosa was normal. Impression: 1. Nonerosive GERD with moderate esophageal dysmotility, cricopharyngeal spasm and small 2 cm hiatal hernia 2. Bile reflux with moderate linear reactive gastropathy of the antrum Plan: I will follow-up the biopsies and disaccharidase assay. The patient does have mild reflux/gas driven reflux causing some esophageal dysmotility and globus sensation. We will discuss treatment options.
[2025-09-03] MEDS: LACTATED RINGERS 1000ML 1,000 ML 50 ML IV (11:37)
[2025-09-03 11:40] VITALS: BP 129/68; PULSE 61; RESP 18; TEMP 37; O2SAT 98
--- NOTE | 2025-09-03 11:47 | P.PNANES_ITS ---
[facility] Disclaimer: The information contained in this section may have been updated after the patient was seen, as this information can be updated by other users. Medical History Obesity (BMI 30.0-34.9) Right hand pain Left hand pain Palpitations GERD (gastroesophageal reflux disease) HLD (hyperlipidemia) HTN (hypertension) Family history of ischemic heart disease Edema of hand Chest pain Surgical History History of cardiac cath H/O: hysterectomy Hx of section Hx laparoscopic cholecystectomy Family History Father Coronary artery disease Colon cancer Social History Smoking Status: Never smoker alcohol intake: never substance use type: denies use current occupational status: employed Travel in the last 8 weeks?: None caffeine: No Have you lived/traveled outside [place] in past 30 days?: No Contact w/someone who lives/traveled outside [place] past 30 days?: No Exposure to someone with infectious disease in past 14 days?: No Do you have a fever (greater than 100.4 F or 38 C)?: No Have you tested positive for COVID-19?: No Exposed to someone with COVID-19 in past 14 days?: No Do you have a sore throat?: No Do you have a cough?: No Do you have any weakness?: No Do you have any diarrhea?: No Are you experiencing any unusual bleeding?: No Do you have any muscle aches/pain?: No Do you have any abdominal pain?: No Are you experiencing loss of taste or smell?: No [facility] Anesthesia Checklist Patient Identification Patient Identification: Arm Band and Verbal (Name & ) Structural Data Admitted From: Home Planned Operative Procedure/s: EGD Consent for Planned Operative Procedure(s) Verified: Yes Verified Documents: Surgical Consent and History and Physical NPO Status Verified Time NPO: 00:00 Additional verifications Anesthesia Reactions: No Airway Assessment Mallampati Score:: Class III Dentition: Good Dentition Neurological Assessment Level of Consciousness: Awake, Alert and Appropriate Hx Seizures: No Numbness or tingling in extremities: No Anesthesia Plan Anesthesia Risk discussed: Yes Anesthesia Plan: Verified ASA Class: II Anesthesia Type: MAC
[2025-09-03 13:33] VITALS: BP 117/77; PULSE 62; RESP 18; TEMP 36.7; O2SAT 94
[2025-09-03 13:48] VITALS: BP 119/77; PULSE 57; RESP 18; TEMP 36.7; O2SAT 95
[2025-09-03 14:03] VITALS: BP 137/81; PULSE 60; RESP 18; TEMP 36.7; O2SAT 96
[2025-09-05 17:11] LABS: Interpretation Notes (.); Lactase 21.76 (>/= 14.0); Maltase 264.81 (>/= 110.0); Palatinase 27.79 (>/= 8.5); Reference Notes (.); Sucrase 65.02 (>/= 25.0)
== END 2025-09-03 14:15 | disposition home or self-care (01) ==
PROVIDERS: PCP Nurse Practitioner; Visit Provider Internal Medicine Gastroenterology
PROC: 0DJ08ZZ Inspection of Upper Intestinal Tract, Via Natural or Artificial Opening Endoscopic (ICD-10-PCS; CPT 43239; principal; 2025-09-03 12:30)
DX: K29.50 Unspecified chronic gastritis without bleeding (principal); K22.4 Dyskinesia of esophagus; K31.89 Other diseases of stomach and duodenum; K44.9 Diaphragmatic hernia without obstruction or gangrene; R13.10 Dysphagia, unspecified; K59.02 Outlet dysfunction constipation; E66.9 Obesity, unspecified; R00.2 Palpitations; K21.9 Gastro-esophageal reflux disease without esophagitis; E78.5 Hyperlipidemia, unspecified; I10 Essential (primary) hypertension; Z90.710 Acquired absence of both cervix and uterus; Z90.49 Acquired absence of other specified parts of digestive tract; Z80.0 Family history of malignant neoplasm of digestive organs; Z79.82 Long term (current) use of aspirin; Z79.899 Other long term (current) drug therapy; Z68.33 Body mass index [BMI] 33.0-33.9, adult; Z79.85 Long-term (current) use of injectable non-insulin antidiabetic drugs
CPT/HCPCS: 43239; 43249; 82657; C1726; J2003; J2704; J7120

== ENCOUNTER 2025-09-14 07:12 | Outpatient (CLI) | payer OTHER, SELFPAY ==
--- OUTSIDE RECORDS SUMMARY | 2025-09-14 07:15 | XMS_ITS | Data Portability ---
Author Organization [facility] Address [address] [place] [address] Care Team Providers Care Advertising Sales Manager Name Role Phone RUT POWELL Primary Care Provider Unavailabl e Assessment Encounter Date Assessment Date Assessment LastModified by Organization Details LastModified Time 02/03/2025 02/03/2025 + strep A in clinic today on POC testing. Medication as prescribed. Change toothbrush after 48 hours of antibiotic therapy. Follow up if no improvement or worsening and PRN. Not available 02/12/2025 15:50:17 05/22/2025 05/22/2025 Patient presented for medication refill. Patient tolerating medication well at current dose without adverse effects. Refilled as below. Discussed plan with patient, who expressed understanding. Follow up as noted below. Not available 05/22/2025 09:59:05 Plan of Treatment Reminders Order Date Submit Date Provider Last Modified By Organization Details Last Modified Time Details Appointments FOLLOW UP 2025 08:30A David Powell APRN Not available Not available Not available Lab magnesium , serum or plasma 2024 025 [place] [facility]), [address] [place], [address], 08/22/2025 13:08:25 prolactin , serum 2024 025 [place] [facility] [address] [place], [address], 08/22/2025 13:08:24 cortisol, am, serum 2024 025 [place] [facility]), [address] [place], [address], 08/22/2025 13:08:26 PTH (parathyr oid hormone), intact, serum or plasma 2024 025 [place] [facility] ([place]), [address] [place], [address], 08/22/2025 13:08:25 cobalamin and folate panel, serum 2024 025 [place] [facility] ([place]), [address] [place], [address], 08/22/2025 13:08:24 TSH + free T4, serum 2024 025 [place] ([place]), [address] [place], [address], 05/30/2025 09:08:34 lipid panel, serum 2024 025 [place] [address] [place], [address], 05/30/2025 09:08:35 lh + FSH, serum 2024 025 [place]), [address] [place], [address], 05/30/2025 09:08:36 cortisol, am, serum 2024 025 [place] [address] [place], [address], 05/30/2025 09:08:39 dhea, serum 2024 025 [place] [address] [place], [address], 05/30/2025 09:08:37 HbA1c (hemoglob in A1c), blood 2024 025 [place] [facility] [address] [place], [address], 05/30/2025 09:08:37 vitamin D, 25-hydrox y, total, serum 2024 025 [facility] ([place]), [address] [place], [address], 05/30/2025 09:08:38 iron + TIBC + ferritin, serum 2024 025 [facility] ([place]), [address] [place], [address], 05/30/2025 09:08:34 lipid panel, serum 2024 025 [facility]), [address] [place], [address], 02/20/2025 07:10:15 CBC w/ auto diff 2024 025 [facility] ([place]), [address] [place], [address], 02/20/2025 07:10:14 CMP, serum or plasma 2024 025 [facility]), [address] [place], [address], 02/20/2025 07:10:15 TSH + free T4, serum 2024 025 [facility]), [address] [place], [address], 02/20/2025 07:10:14 cobalamin and folate panel, serum 2024 025 [facility]), [address] [place], [address], 02/20/2025 07:10:16 vitamin D, 25-hydrox y, total, serum 2024 025 [facility]), [address] [facility], [place], [address], 02/20/2025 07:10:17 HbA1c (hemoglob in A1c), blood 2024 025 [facility] ([place]), [address] [place], [address], 02/20/2025 07:10:17 Hepatitis C IgG Ab, qual, serum 2024 025 [facility] ([place]), [address] [place], [address], 02/20/2025 07:10:16 HIV 1 + 2, meaningfu l use set 2024 025 [facility] ([place]), [address] [place], [address], 02/20/2025 07:10:17 rapid strep group A, throat [address], [address], 02/03/2025 11:15:20 urinalysi s, dipstick [address], [address], 02/03/2025 11:15:20 Referral None recorded. Procedures None recorded. Surgeries None recorded. Imaging XR, finger(s) [address], [address], 12/22/2024 10:06:34 Medication Orders estradiol 0.01% (0.1 mg/gram) vaginal cream 2024 025 [facility], [address] [place] [address], [address], 09/10/2025 09:31:28 rosuvasta tin 40 mg tablet 2024 025 [facility], [address] [place] [address], [address], 08/21/2025 09:02:23 estradiol 0.01% (0.1 mg/gram) vaginal cream 2024 025 [facility], [address] [place] [address], [address], 09/06/2025 15:24:45 hydrochlo rothiazid e 12.5 mg tablet 2024 025 [facility], [address] [place] [address], [address], 07/16/2025 11:55:33 rosuvasta tin 40 mg tablet 2024 025 [facility], [address] [place] [address], [address], 07/18/2025 15:06:13 estradiol 0.01% (0.1 mg/gram) vaginal cream 2024 025 [facility], [address] [place] [address], [address], 02/23/2025 15:08:48 hydrochlo rothiazid e 12.5 mg tablet 2024 025 [facility], [address] [place] [address], [address], 04/26/2025 13:55:35 rosuvasta tin 40 mg tablet 2024 025 [facility], [address] [place] [address], [address], 02/19/2025 09:28:27 Lexapro 10 mg tablet 2024 025 [facility], [address] [place] [address], [address], 05/22/2025 09:18:34 amoxicill in 500 mg capsule 2024 025 [facility], [address] [place] [address], [address], 02/19/2025 09:27:20 azithromy lakeshia 250 mg tablet 2024 025 [facility], [address] [place] [address], [address], 02/03/2025 11:21:28 Lexapro 10 mg tablet [address], [address] [place] [address], [address], 05/22/2025 08:41:03 Lexapro 10 mg tablet [address], [address] [place] [address], [address], 05/22/2025 08:41:03 hydrochlo rothiazid e 12.5 mg tablet 2024 025 [facility], [address] [place] [address], [address], 02/03/2025 11:33:29 promethaz ine-DM 6.25 mg-15 mg/5 mL oral syrup 2024 025 [facility], [address] [place] [address], [address], 02/03/2025 11:21:29 Patient TargetsNo targets recorded. Patient Instructions Encounter Date Encounter Id Patient Instructions Last Modified By Organization Details Last Modified Time 12/22/2024 [id number] statins: care instructions [email or web address] Not available 12/22/2024 13:54:06 02/03/2025 [id number] sore throat: car e instructions Not available 02/03/2025 11:15:20 02/19/2025 [id number] depression treatment: care instructions [email or web address] Not available 02/19/2025 09:24:40 [place] depression scale* [email or web address] Not available 02/19/2025 09:14:23 learning about healthy weight [email or web address] Not available 02/19/2025 09:24:40 Reason for Referral None Reported. Results Created Date Observation Date Name Description Value Unit Range Abnormal Flag Note LastModifiedBy Organization Detail LastModifiedTime 02/04/2002/03/2025 urina lysis , dipst ick Leukocytes Negati ve Not Available [address], [address], 02/03/2025 11:02:36 02/04/20 25 02/03/2025 urina lysis , dipst ick Nitrite negati ve Not Available [address], [address], 02/03/2025 11:02:36 02/04/20 25 02/03/2025 urina lysis , dipst ick Urobilinogen .2 Not Available [address], [address], 02/03/2025 11:02:36 02/04/20 25 02/03/2025 urina lysis , dipst ick Protein Negati ve Not Available [address], [address], 02/03/2025 11:02:36 02/04/20 25 02/03/2025 urina lysis , dipst ick pH 7.0 Not Available [address], [address], 02/03/2025 11:02:36 02/04/20 25 02/03/2025 urina lysis , dipst ick Blood Negati ve Not Available [address], [address], 02/03/2025 11:02:36 02/04/20 25 02/03/2025 urina lysis , dipst ick Specific Kingsley 1.015 Not Available [address], [address], 02/03/2025 11:02:36 02/04/20 25 02/03/2025 urina lysis , dipst ick Ketone Negati ve Not Available [address], [address], 02/03/2025 11:02:36 02/04/20 25 02/03/2025 urina lysis , dipst ick Bilirubin Negati ve Not Available [address], [address], 02/03/2025 11:02:36 02/04/2002/03/2025 urina lysis , dipst ick Glucose Negati ve Not Available [address], [address], 02/03/2025 11:02:36 02/04/20 25 02/03/2025 urina lysis , dipst ick Appearance Slight ly Cloudy Not Available [address], [address], 02/03/2025 11:02:36 02/04/2002/03/2025 urina lysis , dipst ick Color Yellow Not Available [address], [address], 02/03/2025 11:02:36 02/04/20 25 02/03/2025 rapid strep group A, throa t Strep positi ve Not Available [address], [place], [address], 02/03/2025 11:02:29 02/20/20 25 02/20/2025 TSH+F REE T4 TSH 2.550 uIU/m L 0.450- 4.500 normal Not Available [facility]) [address] [place], [address], 02/20/2025 07:10:14 02/20/20 25 02/20/2025 TSH+F REE T4 T4,free(dire ct) 0.98 NG/dL 0.82-1 .77 normal Not Available [facility] ([facility]) [address] [place], [address], 02/20/2025 07:10:14 02/20/20 25 02/20/2025 CBC WITH DIFFE RENTI AL/PL ATELE T WBC 8.2 x10e3 /uL 3.4-10 .8 normal Not Available [facility] ([facility]) [address] [place], [address], 02/20/2025 07:10:14 02/20/20 25 02/20/2025 CBC WITH DIFFE RENTI AL/PL ATELE T RBC 4.53 x10e6 /uL 3.77-5 .28 normal Not Available [facility] ([facility]) [address] [place], [address], 02/20/2025 07:10:14 02/20/20 25 02/20/2025 CBC WITH DIFFE RENTI AL/PL ATELE T hemoglobin 14.1 g/dL 11.1-1 5.9 normal Not Available [facility] ([facility]) [address] [place], [address], 02/20/2025 07:10:14 02/20/20 25 02/20/2025 CBC WITH DIFFE RENTI AL/PL ATELE T hematocrit 44.0 % 34.0-4 6.6 normal Not Available [facility] ([facility]) [address] [place], [address], 02/20/2025 07:10:14 02/20/20 25 02/20/2025 CBC WITH DIFFE RENTI AL/PL ATELE T MCV 97 fL 79-97 normal Not Available [facility] ([facility]) [address] [place], [address], 02/20/2025 07:10:14 02/20/20 25 02/20/2025 CBC WITH DIFFE RENTI AL/PL ATELE T MCH 31.1 pg 26.6-3 3.0 normal Not Available [facility] ([facility]) [address] [place], [address], 02/20/2025 07:10:14 02/20/20 25 02/20/2025 CBC WITH DIFFE RENTI AL/PL ATELE T MCHC 32.0 g/dL 31.5-3 5.7 normal Not Available [facility] ([facility]) [address] [place], [address], 02/20/2025 07:10:14 02/20/20 25 02/20/2025 CBC WITH DIFFE RENTI AL/PL ATELE T RDW 13.6 % 11.7-1 5.4 Not Available [facility]) [address] [place], [address], 02/20/2025 07:10:14 02/20/20 25 02/20/2025 CBC WITH DIFFE RENTI AL/PL ATELE T platelets 289 x10e3 /uL 150-45 0 normal Not Available [facility]) [address] [place], [address], 02/20/2025 07:10:14 02/20/20 25 02/20/2025 CBC WITH DIFFE RENTI AL/PL ATELE T neutrophils 63 % not estab. normal Not Available [facility]) [address] [facility], [place], [address], 02/20/2025 07:10:14 02/20/20 25 02/20/2025 CBC WITH DIFFE RENTI AL/PL ATELE T lymphs 28 % not estab. normal Not Available [facility]) [address] [facility], [place], [address], 02/20/2025 07:10:14 02/20/20 25 02/20/2025 CBC WITH DIFFE RENTI AL/PL ATELE T monocytes 6 % not estab. normal Not Available [facility]) [address] [facility], [place], [address], 02/20/2025 07:10:14 02/20/20 25 02/20/2025 CBC WITH DIFFE RENTI AL/PL ATELE T eos 2 % not estab. normal Not Available [facility]) [address] [facility], [place], [address], 02/20/2025 07:10:14 02/20/20 25 02/20/2025 CBC WITH DIFFE RENTI AL/PL ATELE T basos 1 % not estab. normal Not Available [facility]) [address] [place], [address], 02/20/2025 07:10:14 02/20/20 25 02/20/2025 CBC WITH DIFFE RENTI AL/PL ATELE T immature cells HOUSEKEEPING COORDINATOR Not Available [facility]) [address] [place], [address], 02/20/2025 07:10:14 02/20/20 25 02/20/2025 CBC WITH DIFFE RENTI AL/PL ATELE T neutrophils (absolute) 5.2 x10e3 /uL 1.4-7. 0 normal Not Available [facility]) [address] [facility], [address], 02/20/2025 07:10:14 02/20/20 25 02/20/2025 CBC WITH DIFFE RENTI AL/PL ATELE T lymphs (absolute) 2.3 x10e3 /uL 0.7-3. 1 normal Not Available [facility]) [address] [facility], [place], [address], 02/20/2025 07:10:14 02/20/20 25 02/20/2025 CBC WITH DIFFE RENTI AL/PL ATELE T monocytes(ab solute) 0.5 x10e3 /uL 0.1-0. 9 normal Not Available [facility]) [address] [facility], [place], [address], 02/20/2025 07:10:14 02/20/20 25 02/20/2025 CBC WITH DIFFE RENTI AL/PL ATELE T eos (absolute) 0.2 x10e3 /uL 0.0-0. 4 normal Not Available [facility] ([facility]) [address] [place], [address], 02/20/2025 07:10:14 02/20/20 25 02/20/2025 CBC WITH DIFFE RENTI AL/PL ATELE T baso (absolute) 0.1 x10e3 /uL 0.0-0. 2 normal Not Available [facility] ([facility]) [address] [place], [address], 02/20/2025 07:10:14 02/20/20 25 02/20/2025 CBC WITH DIFFE RENTI AL/PL ATELE T immature granulocytes 0 % not estab. Not Available [facility]) [address] [facility], [place], [address], 02/20/2025 07:10:14 02/20/20 25 02/20/2025 CBC WITH DIFFE RENTI AL/PL ATELE T immature grans (abs) 0.0 x10e3 /uL 0.0-0. 1 Not Available [facility]) [address] [facility], [place], [address], 02/20/2025 07:10:14 02/20/20 25 02/20/2025 CBC WITH DIFFE RENTI AL/PL ATELE T NRBC HOUSEKEEPING COORDINATOR Not Available [facility]) [address] [facility], [place], [address], 02/20/2025 07:10:14 02/20/20 25 02/20/2025 CBC WITH DIFFE RENTI AL/PL ATELE T hematology comments: HOUSEKEEPING COORDINATOR Not Available [facility]) [address] [facility], [place], [address], 02/20/2025 07:10:14 02/20/20 25 02/20/2025 COMP. METAB OLIC PANEL (14) glucose 100 mg/dL 70-99 above high normal Not Available [facility] ([facility]) [address] [facility], [place], [address], 02/20/2025 07:10:15 02/20/20 25 02/20/2025 COMP. METAB OLIC PANEL (14) BUN 12 mg/dL 6-24 normal Not Available [facility] ([facility]) [address] [place], [address], 02/20/2025 07:10:15 02/20/20 25 02/20/2025 COMP. METAB OLIC PANEL (14) creatinine 1.00 mg/dL 0.57-1 .00 normal Not Available [facility] ([facility]) [address] [place], [address], 02/20/2025 07:10:15 02/20/20 25 02/20/2025 COMP. METAB OLIC PANEL (14) eGFR 68 mL/mi n/1.7 3 >59 normal Not Available [facility] ([facility]) [address] [place], [address], 02/20/2025 07:10:15 02/20/20 25 02/20/2025 COMP. METAB OLIC PANEL (14) BUN/creatini ne ratio 12 9-23 normal Not Available [facility]) [address] [place], [address], 02/20/2025 07:10:15 02/20/20 25 02/20/2025 COMP. METAB OLIC PANEL (14) sodium 142 mmol/ L 134-14 4 normal Not Available [facility]) [address] [place], [address], 02/20/2025 07:10:15 02/20/20 25 02/20/2025 COMP. METAB OLIC PANEL (14) potassium 4.0 mmol/ L 3.5-5. 2 normal Not Available [facility]) [address] [place], [address], 02/20/2025 07:10:15 02/20/20 25 02/20/2025 COMP. METAB OLIC PANEL (14) chloride 101 mmol/ L 96-106 normal Not Available [facility]) [address] [place], [address], 02/20/2025 07:10:15 02/20/20 25 02/20/2025 COMP. METAB OLIC PANEL (14) carbon dioxide, total 26 mmol/ L 20-29 normal Not Available [facility]) [address] [facility] [place], [address], 02/20/2025 07:10:15 02/20/20 25 02/20/2025 COMP. METAB OLIC PANEL (14) calcium 9.4 mg/dL 8.7-10 .2 normal Not Available [facility]) [address] [place], [address], 02/20/2025 07:10:15 02/20/20 25 02/20/2025 COMP. METAB OLIC PANEL (14) protein, total 7.0 g/dL 6.0-8. 5 normal Not Available [facility] [address] [place], [address], 02/20/2025 07:10:15 02/20/20 25 02/20/2025 COMP. METAB OLIC PANEL (14) albumin 4.5 g/dL 3.8-4. 9 normal Not Available [facility] [address] [facility] [place], [address], 02/20/2025 07:10:15 02/20/20 25 02/20/2025 COMP. METAB OLIC PANEL (14) globulin, total 2.5 g/dL 1.5-4. 5 Not Available [facility] [address] [place], [address], 02/20/2025 07:10:15 02/20/20 25 02/20/2025 COMP. METAB OLIC PANEL (14) bilirubin, total 1.6 mg/dL 0.0-1. 2 above high normal Not Available [facility]) [address] [place], [address], 02/20/2025 07:10:15 02/20/20 25 02/20/2025 COMP. METAB OLIC PANEL (14) alkaline phosphatase 93 IU/L 44-121 normal Not Available [facility] [address] [place], [address], 02/20/2025 07:10:15 02/20/20 25 02/20/2025 COMP. METAB OLIC PANEL (14) AST (SGOT) 29 IU/L 0-40 normal Not Available [facility]) [address] [place], [address], 02/20/2025 07:10:15 02/20/20 25 02/20/2025 COMP. METAB OLIC PANEL (14) ALT (SGPT) 34 IU/L 0-32 above high normal Not Available [facility] ([facility]) [address] [place], [address], 02/20/2025 07:10:15 02/20/20 25 02/20/2025 LIPID PANEL cholesterol, total 169 mg/dL 100-19 9 normal Not Available [facility]) [address] [place], [address], 02/20/2025 07:10:15 02/20/20 25 02/20/2025 LIPID PANEL triglyceride s 114 mg/dL 0-149 normal Not Available [facility]) [address] [place], [address], 02/20/2025 07:10:15 02/20/20 25 02/20/2025 LIPID PANEL HDL cholesterol 72 mg/dL >39 normal Not Available [facility] [address] [place], [address], 02/20/2025 07:10:15 02/20/20 25 02/20/2025 LIPID PANEL VLDL cholesterol arnav 20 mg/dL 5-40 Not Available [facility] [address] [place], [address], 02/20/2025 07:10:15 02/20/20 25 02/20/2025 LIPID PANEL LDL chol calc ([facility]) 77 mg/dL 0-99 Not Available [facility] [address] [place], [address], 02/20/2025 07:10:15 02/20/20 25 02/20/2025 LIPID PANEL LDL calc comment: HOUSEKEEPING COORDINATOR Not Available [facility]) [address] [place], [address], 02/20/2025 07:10:15 02/20/20 25 02/20/2025 VITAM IN B12 AND FOLAT E vitamin B12 721 pg/mL 232-12 45 normal Not Available [facility] ([facility]) [address] [facility], [place], [address], 02/20/2025 07:10:16 02/20/20 25 02/20/2025 VITAM IN B12 AND FOLAT E folate (folic acid), serum 12.3 NG/mL >3.0 normal A serum folat e madeline ntrat ion of less than 3.1 ng/mL is consi dered to repre sent clini arnav defic iency . Not Available [facility] ([facility]) [address] [facility], [place], [address], 02/20/2025 07:10:16 02/20/20 25 02/20/2025 HCV ANTIB LINNETTE RFX TO QUANT PCR HCV Ab Non Reacti ve non reacti ve Not Available [facility] ([facility]) [address] [facility], [place], [address], 02/20/2025 07:10:16 02/20/20 25 02/20/2025 HCV ANTIB LINNETTE RFX TO QUANT PCR interpretati on: Commen t Not infec durga with HCV unles s early or acute infec tion is suspe cted (whic h may be delay ed in an immun ocomp romis ed indiv idual ), or other evide nce exist s to indic ate HCV infec tion. Not Available [facility] ([facility]) [address] [facility], [place], [address], 02/20/2025 07:10:16 02/20/20 25 02/20/2025 HEMOG LOBIN A1C hemoglobin A1C 5.5 % 4.8-5. 6 normal Predi abete s: 5.7 - 6.4 Diabe agatha: >6.4 Glyce dleano contr ol for adult s with diabe agatha: <7.0 Not Available [facility] ([facility]) [address] [facility], [place], [address], 02/20/2025 07:10:17 02/20/20 25 02/20/2025 VITAM IN D, 25-HY DROXY vitamin D, 25-hydroxy 38.3 NG/mL 30.0-1 00.0 Vitam in D defic iency has been defin ed by the Insti tute of Medic ine and an Endoc rine Socie ty pract ice guide line as a level of serum 25-OH vitam in D less than 20 ng/mL (1,2) . The Endoc rine Socie ty went on to furth er defin e vitam in D insuf ficie ncy as a level betwe en 21 and 29 ng/mL (2). 1. IOM (Inst itute of Medic ine). 2009. Dieta ry refer ence intak es for calci um and D. Favio laura [place]: The [facility] . 2. Sandy stubbs MF, Harjinder mcallister [place], Amy off-F errar i ROONEY, et al. Evalu ation , treat ment, and preve ntion of vitam in D defic iency : an Endoc rine Socie ty clini arnav pract ice guide line. JCEM. 2010; 96(7) :1911 -30. Not Available [facility] ([facility]) [address] [facility], [place], [address], 02/20/2025 07:10:17 02/20/20 25 02/20/2025 HIV AB/P2 4 AG WITH REFLE X HIV Ab/P24 Ag screen Non Reacti ve non reacti ve HIV-1 /HIV- 2 antib odies and HIV-1 p24 antig en were NOT detec durga. There is no labor atory evide nce of HIV infec tion. HIV Negat samir Not Available [facility] ([facility]) [address] [facility], [place], [address], 02/20/2025 07:10:17 05/22/20 25 05/23/2025 FE+TI BC+FE R iron bind.cap.(TI BC) 332 ug/dL 250-45 0 normal Not Available [facility] ([facility]) [address] [place], [address], 05/30/2025 09:08:33 05/22/20 25 05/23/2025 FE+TI BC+FE R UIBC 269 ug/dL 131-42 5 normal Not Available [facility] ([facility]) [address] [place], [address], 05/30/2025 09:08:33 05/22/20 25 05/23/2025 FE+TI BC+FE R iron 63 ug/dL 27-159 normal Not Available [facility] ([facility]) [address] [place], [address], 05/30/2025 09:08:33 05/22/20 25 05/23/2025 FE+TI BC+FE R iron saturation 19 % 15-55 normal Not Available [facility] [address] [place], [address], 05/30/2025 09:08:33 05/22/20 25 05/23/2025 FE+TI BC+FE R ferritin 150 NG/mL 15-150 normal Not Available [facility] ([facility]) [address] [place], [address], 05/30/2025 09:08:33 05/22/20 25 05/23/2025 TSH+F REE T4 TSH 2.930 uIU/m L 0.450- 4.500 normal Not Available [facility] ([facility]) [address] [place], [address], 05/30/2025 09:08:34 05/22/20 25 05/23/2025 TSH+F REE T4 T4,free(dire ct) 0.90 NG/dL 0.82-1 .77 normal Not Available [facility] ([facility]) [address] [place], [address], 05/30/2025 09:08:34 05/22/20 25 05/23/2025 LIPID PANEL cholesterol, total 173 mg/dL 100-19 9 normal Not Available [facility] ([facility]) [address] [place], [address], 05/30/2025 09:08:35 05/22/20 25 05/23/2025 LIPID PANEL triglyceride s 136 mg/dL 0-149 normal Not Available [facility] [address] [place], [address], 05/30/2025 09:08:35 05/22/20 25 05/23/2025 LIPID PANEL HDL cholesterol 69 mg/dL >39 normal Not Available [facility] [address] [place], [address], 05/30/2025 09:08:35 05/22/20 25 05/23/2025 LIPID PANEL VLDL cholesterol arnav 23 mg/dL 5-40 Not Available [facility] [address] [place], [address], 05/30/2025 09:08:35 05/22/20 25 05/23/2025 LIPID PANEL LDL chol calc ([facility]) 81 mg/dL 0-99 Not Available [facility] ([facility]) [address] [place], [address], 05/30/2025 09:08:35 05/22/20 25 05/23/2025 LIPID PANEL LDL calc comment: [employer]SEKEEPING [employer]INATOR Not Available [facility] ([facility]) [address] [place], [address], 05/30/2025 09:08:35 05/22/20 25 05/23/2025 FSH AND LH LH 43.1 mIU/m L normal Adult Femal e Range Folli cular phase 2.4 - 12.6 Ovula tion phase 14.0 - 95.6 Lutea l phase 1.0 - 11.4 Postm enopa usal 7.7 - 58.5 Not Available [facility] ([facility]) [address] [place], [address], 05/30/2025 09:08:36 05/22/20 25 05/23/2025 FSH AND LH FSH 70.1 mIU/m L Adult Femal e Range Folli cular phase 3.5 - 12.5 Ovula tion phase 4.7 - 21.5 Lutea l phase 1.7 - 7.7 Postm enopa usal 25.8 - 134.8 Not Available [facility] ([facility]) [address] [facility], [place], [address], 05/30/2025 09:08:36 05/22/20 25 05/23/2025 HEMOG LOBIN A1C hemoglobin A1C 5.5 % 4.8-5. 6 normal Predi abete s: 5.7 - 6.4 Diabe agatha: >6.4 Glyce [place] contr ol for adult s with diabe agatha: <7.0 Not Available [facility] ([facility]) [address] [facility], [place], [address], 05/30/2025 09:08:36 05/22/2005/30/2025 DHEA, SERUM dehydroepian drosterone (DHEA) 109 NG/dL 21-402 Not Available [facility] ([facility]) [address] [place], [address], 05/30/2025 09:08:37 05/22/20 25 05/23/2025 VITAM IN D, 25-HY DROXY vitamin D, 25-hydroxy 32.6 NG/mL 30.0-1 00.0 Vitam in D defic iency has been defin ed by the [facility] and an Endoc rine Socie ty pract ice guide line as a level of serum 25-OH vitam in D less than 20 ng/mL (1,2) . The Endoc rine Socie ty went on to furth er defin e vitam in D insuf ficie ncy as a level betwe en 21 and 29 ng/mL (2). 1. IOM (Inst itute of Medic ine). 2010. Dieta ry refer jamese sarah es for calci um and D. Favio laura [place]: [facility] . 2. Sandy stubbs MF, Binkl ey [place], Bisch off-F errar i ROONEY, et al. Evalu ation , treat ment, and preve ntion of vitam in D defic iency : an Endoc rine Socie ty clini arnav pract ice guide line. JCEM. 2010; 96(7) :1911 -30. Not Available [facility] ([facility]) [address] [facility], [place], [address], 05/30/2025 09:08:38 05/22/20 25 05/23/2025 CORTI ADIA - AM cortisol - AM 9.5 ug/dL 6.2-19 .4 Not Available [facility] ([facility]) [address] [facility], [place], [address], 05/30/2025 09:08:39 12/23/19 25 XR, finge r(s) No observ ation record ed. [email or web address] [address], [address], 12/25/2024 09:39:55 05/26/20 25 05/24/2025 US, doppl er echoc ardio gram No observ ation record ed. [email or web address] [address], [place], [address], 05/29/2025 08:40:47 Result Notes None recorded. Problems Name Problem SNOMED Code Status Onset Date Resolution Date Notes Provider Name and Address Organization Details Recorded Time Hyperlipidemia 50519212 Active 2022 KARLA colindres [place] - [employer] 3 08:36:08 Acute urinary tract infection 691328250 Active 2022 CAIO MENESES-CHARLIE [address] [place], [address], [place] [employer] 3 08:54:12 Atrophic vaginitis 10378648 Active 2022 Ashanti Segundo II, MD [address] [place] [address], [address], [employer] 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 4 09:39:42 Sore throat 222054350 Active 2024 Merry Shaffery, SUPPORTIVE EMPLOYMENT CASE MANAGER [address] [place] [address], [address], [employer] 5 11:10:49 Low back pain 361731714 Active 2024 Merry Giovanny, SUPPORTIVE EMPLOYMENT CASE MANAGER [address] [place] [address], [address], [employer] 5 11:11:10 Streptococcal sore throat 48058048 Active 2024 Merry Giovanny, SUPPORTIVE EMPLOYMENT CASE MANAGER [address] [place] [address], [address], [employer] 5 11:11:23 Hyperglycemia 07067831 Active 2024 Jennifer colindres, [employer] 5 08:52:03 Fatigue 93774584 Active 2024 Jennifer colindres, [employer] 5 08:52:03 Moderate recurrent major depression 99057894 Active 2024 Jennifer colindres, [employer] 5 08:52:55 Problem Notes None recorded. Procedures Surgical History Date Name Laterality Status Provider Name and Address Organization Details Recorded Time 08/03/20 24 colonoscopy completed Jennifer Weir [employer] 08/17/2024 10:35:59 06/02/20 24 Most Recent Mammogram completed Jennifer Weir [employer] 12/22/2024 08:04:51 08/23/20 20 Gallbladder Surgery completed [facility]. 10/26/2022 09:54:07 01/06/20 11 Total Hysterectomy completed [facility]. 10/26/2022 09:54:07 01/21/19 95 Caesarean Section completed [facility]. 10/26/2022 09:54:07 Imaging Results None recorded. Procedure Notes None recorded. Medical Equipment None Reported. Allergies No known drug allergies Medications Name Sig Start Date Stop Date Status Note LastModified by Organization Details LastModified Time amoxicillin 500 mg capsule TAKE ONE CAPSULE BY MOUTH TWICE DAILY FOR 10 DAYS 02/19 completed Not Available Not Available Not Available promethazin e-DM 6.25 mg-15 mg/5 mL oral syrup Take 5 mL by mouth every 4 hours as needed. 02/03 completed Not Available Not Available Not Available azithromyci n 250 mg tablet TAKE 2 TABLETS BY MOUTH ON DAY 1, THEN TAKE 1 TABLET DAILY ON DAYS 2-5 02/03 completed Not Available Not Available Not Available benzonatate 200 mg capsule TAKE 1 CAPSULE BY MOUTH THREE TIMES DAILY NEEDED FOR COUGH FOR 5 DAYS 10/26 completed Not Available Not Available Not Available hydrocodone 5 mg-acetamin ophen 325 mg tablet TAKE 1 TABLET BY MOUTH EVERY 6 HOURS NEEDED FOR PAIN 11/18 completed Not Available Not Available Not Available meloxicam 15 mg tablet TAKE 1 TABLET BY MOUTH ONCE DAILY 08/21 completed Not Available Not Available Not Available prednisone 20 mg tablet TAKE 2 TABLETS BY MOUTH ONCE DAILY FOR 5 DAYS 01/14 completed Not Available Not Available Not Available sertraline 100 mg tablet TAKE 1 TABLET BY MOUTH ONCE DAILY TAKE WITH 50 MG TOTAL OF 150 MG active Not Available Not Available No t Available doxepin 10 mg capsule TAKE 1 CAPSULE BY MOUTH AT NIGHT 1 HOUR BEFORE BEDTIME FOR SLEEP active Not Available Not Available No t Available omeprazole 40 mg capsule,del ayed release TAKE 1 CAPSULE BY MOUTH ONCE DAILY active Not Available Not Available No t Available aspirin 81 mg tablet,gary yed release TAKE 1 TABLET BY MOUTH ONCE DAILY FOR HEART HEALTH active Not Available Not Available No t Available acyclovir 800 mg tablet Take 1 tablet 5 times a day by oral route for 10 days. 02/12 completed Not Available Not Available Not Available potassium chloride ER 20 mEq tablet,exte nded release(par t/cryst) TAKE 2 TABLETS BY MOUTH ONCE DAILY 05/14 completed Not Available Not Available Not Available amitriptyli ne 25 mg tablet Take 1 tablet every day by oral route at bedtime. 02/12 completed Not Available Not Available Not Available methocarbam ol 750 mg tablet TAKE 1 TABLET BY MOUTH EVERY 8 HOURS NEEDED FOR PAIN 08/21 completed Not Available Not Available Not Available phenazopyri dine 100 mg tablet TAKE 1 TABLET BY MOUTH THREE TIMES DAILY FOR 2 DAYS 08/13 completed Not Available Not Available Not Available triamcinolo ne acetonide 40 mg/mL suspension for injection Take 1 mL by injection route. 12/22 completed Not Available Not Available Not Available fluorometho lone 0.1 % eye drops,suspe nsion INSTILL 1 DROP INTO BOTH EYES FOUR TIMES DAILY FOR 2 WEEKS THEN DISCONTIN UE 02/16 completed Not Available Not Available Not Available metoprolol succinate ER 25 mg tablet,exte nded release 24 hr TAKE 1 TABLET BY MOUTH ONCE DAILY FOR HIGH BLOOD PRESSURE active Not Available Not Available No t Available estradiol 0.01% (0.1 mg/gram) vaginal cream Insert 1 g twice a week by vaginal route. 2024 active Not Available Not Available Not Avai lable methylpredn isolone 4 mg tablets in a dose pack TAKE DIRECTED ON PACKAGE 11/17 completed Not Available Not Available Not Available albuterol sulfate HFA 90 mcg/actuati on aerosol inhaler INHALE 2 PUFFS BY MOUTH EVERY 4 HOURS NEEDED 07/28 completed Not Available Not Available Not Available sertraline 50 mg tablet TAKE 3 TABLETS BY MOUTH ONCE DAILY active Not Available Not Available No t Available escitalopra m 10 mg tablet TAKE ONE TABLET BY MOUTH EVERY DAY 05/22 completed Not Available Not Available Not Available rosuvastati n 40 mg tablet TAKE 1 TABLET DAILY 2024 active Not Available Not Available Not Avai lable bupropion HCl XL 150 mg 24 hr tablet, extended release TAKE 1 TABLET BY MOUTH IN THE MORNING active Not Available Not Available No t Available nitrofurant oin monohydrate /macrocryst als 100 mg capsule TAKE 1 CAPSULE BY MOUTH EVERY 12 HOURS DIRECTED FOR 7 DAYS 08/13 completed Not Available Not Available Not Available hydrochloro thiazide 12.5 mg tablet TAKE 1 TABLET BY MOUTH EVERY DAY active Not Available Not Available No t Available peg 3350-electr olytes 236 gram-22.74 gram-6.74 gram-5.86 gram solution TAKE DIRECTED 02/19 completed GI Not Available Not Available Not Available [employer] COVID-19 Antigen Home Test kit 08/13 completed Not Available Not Available Not Available Vitals Date Recorded Body height Body mass index (BMI) Body weight Heart rate Oxygen saturation Systolic And Diastolic Provider Name and Address Organization Details Last Updated DateTime 5 162.56 cm 31.8 kg/m2 71086.5 9 g 55 /min 98 % 122/74 mm[Hg] [employer]. 5 08:25:00 Date Recorded Body height Body mass index (BMI) Body weight Body temperature Heart rate Oxygen saturation Systolic And Diastolic Provider Name and Address Organization Details Last Updated DateTime 5 162.56 cm 32.2 kg/m2 18964.8 7 g 98.3 [degF] 63 /min 96 % 119/77 mm[Hg] Francie Carter [employer]. 5 11:02:06 Date Recorded Body height Body mass index (BMI) Body weight Oxygen saturation Heart rate Systolic And Diastolic Provider Name and Address Organization Details Last Updated DateTime 5 162.56 cm 32 kg/m2 22287.2 8 g 95 % 47 /min 117/69 mm[Hg] Jennifer [employer]. 5 08:59:45 Date Recorded Body height Body mass index (BMI) Body weight Heart rate Oxygen saturation Systolic And Diastolic Provider Name and Address Organization Details Last Updated DateTime 5 162.56 cm 33.6 kg/m2 30391.3 1 g 61 /min 93 % 124/79 mm[Hg] Jennifer [employer]. 5 08:43:28 Date Recorded Body height Body mass index (BMI) Body weight Heart rate Oxygen saturation Systolic And Diastolic Provider Name and Address Organization Details Last Updated DateTime 5 162.56 cm 35.1 kg/m2 15357.6 4 g 63 /min 91 % 115/75 mm[Hg] Jennifer Weir [employer] 5 08:16:46 Social History Question Answer Notes LastModified by Organizat ion Details LastModified Time Tobacco Smoking Status Never Smoker KARLA HERNANDEZ [employer]ern[employer]ine [employer]. 10/26/2022 09:54:06 Do You Have An Advance Directive? No [email or web address] Information not available 07/28/2023 Is Your Home Air Conditioned? Yes [email or web address] Information not available 10/26/2022 Do You Wear A Helmet When Biking? No [email or web address] Information not available 10/26/2022 Are You Blind Or Do You Have Difficulty Seeing? No [email or web address] Information not available 10/26/2022 What Is Your Level Of Caffeine Consumption? Moderate [email or web address] Information not available 10/26/2022 Are You A Caregiver? Yes Information not available 08/21/2025 In The 14 Days Before Symptom Onset, Have You Had Close Contact With A Laboratory-confir med COVID-19 While That Case Was Ill? No [email or web address] Information not available 09/02/2023 In The 14 Days Before Symptom Onset, Have You Had Close Contact With A Person Who Is Under Investigation For COVID-19 While That Person Was Ill? No [email or web address] Information not available 09/02/2023 Have You Been To An Area Known To Be High Risk For COVID-19? No [email or web address] Information not available 09/02/2023 Are You Deaf Or Do You Have Serious Difficulty Hearing? No [email or web address] Information not available 10/26/2022 What Type Of Diet Are You Following? REGULAR [email or web address] Information not available 10/26/2022 What Is The Highest Grade Or Level Of School You Have Completed Or The Highest Degree You Have Received? [id number] [email or web address] Information not available 10/26/2022 Have There Been Any Changes To Your Family Or Social Situation? No [email or web address] Information no t available 10/26/2022 Are There Any Guns Present In Your Home? No [email or web address] Information not available 10/26/2022 Which Of Your Hands Is Dominant? Right [email or web address] Information not available 10/26/2022 Do You Engage In Moderate/heavy Exercise (e.g. Brisk Walk, Jogging, Strength Training, Etc)? No Information not available 08/21/2025 How Many Times In The Past Year Have You Used An Illegal Drug Or Used A Prescription Medication For Nonmedical Reasons? 0 Information not available 08/21/2025 Where Do You Live? SingleLevelHouse [email or web address] Information not available 10/26/2022 Do You Have A Medical Power Of Motion Picture Projectionist Apprentice? No [email or web address] Information not available 10/26/2022 What Was The Date Of Your Most Recent Tobacco Screening? 08/21/2025 Information not available 08/21/2025 Have You Ever Been Counseled For Unhealthy Alcohol Use? No [email or web address] Information not available 10/26/2022 Do You Have Any Pets? Yes [email or web address] Information not available 10/26/2022 What Is Your Relationship Status? [email or web address] Information not available 10/26/2022 Have You Repeated Any Grades? Yes [email or web address] Information not available 10/26/2022 Do You Wear A Seatbelt When Driving Or As A Passenger? Yes Information not available 08/21/2025 Do You Use Your Seat Belt Or Car Seat Routinely? Yes [email or web address] Information not available 10/26/2022 Are You Sexually Active? Yes Information not available 10/26/2022 Do You Have Any Siblings? Yes [email or web address] Information not available 10/26/2022 Do You Have Smoke And Carbon Monoxide Detectors In Your Home? No Information not available 08/21/2025 Are You Passively Exposed To Smoke? No [email or web address] Information no t available 10/26/2022 Are There Any Smokers In Your House? No [email or web address] Information not available 10/26/2022 Do You Participate In Social Media? Yes [email or web address] Information not available 10/26/2022 What Types Of Sporting Activities Do You Participate In? None Information not available 08/21/2025 Do You Use Sunscreen Routinely? Yes Information not available 10/26/2022 Has Tobacco Cessation Counseling Been Provided? No [email or web address] Information not available 10/26/2022 Have You Recently Traveled Abroad? No [email or web address] Information not available 10/26/2022 Have You Used IV Drugs? No [email or web address] Information not available 10/26/2022 Do You Have Difficulty Walking Or Climbing Stairs? No [email or web address] Information not available 10/26/2022 Are You Currently In School? No [email or web address] Information not available 10/26/2022 What Contraceptive Method Was Reported At Start Of This Visit? None Information not available 08/21/2025 Do You Feel Safe In Your Home? Yes Information not available 08/21/2025 Do You Have Any Dietary Restrictions? No [email or web address] Information not available 10/26/2022 What Is Your Reason For Having No Contraceptive Method At Start Of This Visit? Same Sex Partner Information not available 08/21/2025 Sex: Unknown Functional Status Question Answer Note LastModified by Organizat ion Details LastModified Time Do you or have you ever used smokeless tobacco? Never used smokeless tobacco [email or web address] Information not available 10/26/2022 Are you currently employed? No Information not available 08/21/2025 Do you have transportation difficulties? No Information not available 10/26/2022 Are you able to care for yourself independently? Yes [email or web address] Information not available 10/26/2022 Do you have difficulty dressing, bathing, grooming, or toileting? No [email or web address] Information not available 10/26/2022 Do you or have you ever used e-cigarettes or vape? Never used electronic cigarettes [email or web address] Information not available 10/26/2022 What is your exercise level? Occasional [email or web address] Information not available 10/26/2022 Do you use any illicit or recreational drugs? No [email or web address] Information not available 10/26/2022 Do you feel safe in your relationship? Yes Information not available 08/21/2025 Do you or have you ever used any other forms of tobacco or nicotine? No [email or web address] Information not available 10/26/2022 What is your level of alcohol consumption? None [email or web address] Information not available 10/26/2022 Are you able to walk independently without assistance or assistive devices? YESWOREST [email or web address] Information not available 10/26/2022 Do you have difficulty doing errands alone? No [email or web address] Information not available 10/26/2022 Mental Status Question Answer Note LastModified by Organizat ion Details LastModified Time Do you feel stressed (tense, restless, nervous, or anxious, or unable to sleep at night)? [id number] [email or web address] Information not available 10/26/2022 Do you have difficulty concentrating, remembering or making decisions? No [email or web address] Information no t available 10/26/2022 Are you or have you been involved with bullying? No [email or web address] Information not available 10/26/2022 Family History Relationship Description Onset Age of this Age Resolved Age Notes LastModified by Organization Details LastModified Time Father No current problems or disability Not available 02/01 08:57:23 Father Heart disease [email or web address] Not available 10/26 09:54:06 Father Hypertensive disorder [email or web address] Not available 10/26 09:54:06 Father Hypercholest erolemia Not available 02/16 08:57:23 Mother No current problems or disability Not available 02/01 08:57:23 Mother Hypertensive disorder [email or web address] Not available 10/26 09:54:06 Sister Hypertensive disorder [email or web address] Not available 10/26 09:54:06 Maternal Grandmother Hypercholest erolemia Not available 02/16 08:57:23 Medical History Condition Response Emergency room visit since last appointm ent. N Depression Y Anxiety Disorder Y Arthritis Y High Cholesterol Y Headaches Y Hospitalizations N Gynecological History Statement/Question Response On BCP's at Conception? N STIs/STDs N HPV Vaccine N Current Control Method Hysterectom y Most Recent Mammogram 06/02/2024 Age at First Child 24 Sexually Active? Y Menses Monthly N Date of Last Pap Smear Sexual Problems? N LMP Unknown Obstetrics History GPAL:G 2 P 0 0 1 2 Type Value Spontaneous 1 Living 2 Total 2 Immunizations Vaccine Type Date Status Note Provider Name and Address Organization Details Recorded Time zoster recombinant 05/14/20 23 completed Rut Powell APRN [address] [place] [address], [address], [employer] 05/14/2023 12:29:16 zoster recombinant 05/19/20 24 completed Rut Powell APRN [address] [place] [address], [address], [employer] 05/19/2024 13:08:42 pneumococcal polysaccharide PPV23 02/20/20 25 cancelled patient objection Rut Powell APRN [address] [place] [address], [address], [employer] 02/19/2025 09:18:47 Td (adult), 2 Lf tetanus toxoid, preservative free, adsorbed 06/16/20 06 completed KARLA colindres, [employer] 10/26/2022 09:54:25 Past Encounters Encounter ID Performer Location Encounter Start Date Encounter Closed Date Diagnosis/Indication Diagnosis SNOMED-CT Code Diagnosis ICD10 Code Diagnosis IMO Codes Diagnosis Note [id number] [place] [address] 10/26/2022 09:30:32 10/26/2022 10:41:09 Adult health examination 216575661 Z00.00 Hypertensive disorder 38 503507 I10 Fatigue 98326882 R53.83 Obesity 217168869 E66.9 Body mass index 30+ - obesity 246291444 Z68.32 Screening mammography 24 942492 Z12.31 [id number] [place] [address] 11/02/2022 10:42:40 11/02/2022 11:09:27 Hypertensive disorder 15988326 I10 Hyperlipidemia 88160836 E78.5 Body mass index 30+ - obesity 067982337 Z68.32 [id number] [place] [address] 11/06/2022 13:11:40 11/06/2022 14:28:52 Fever 949556884 R50.9 Acute sinusitis 89632383 J01.90 [id number] [place] [address] 11/16/2022 09:33:06 11/16/2022 09:49:38 Hypertensive disorder 49925542 I10 Hyperlipidemia 65151412 E78.5 Body mass index 30+ - obesity 780721921 Z68.32 [id number] [place] [address] 12/18/2022 09:26:43 12/18/2022 10:14:25 Cough 67622771 R05.9 Acute bronchitis 5094440 2 J20.9 [id number] [place] [address] 01/14/2023 08:34:11 01/14/2023 09:24:27 Herpes zoster 7580037 B02.9 Body mass index 30+ - obesity 589342760 Z68.32 [id number] [place] [address] 02/12/2023 09:37:25 02/12/2023 10:28:17 Chest pain 93878371 R07.9 Hyperlipidemia 60100817 E78.5 Essential hypertension 78652750 I10 Hypertensive disorder 38 783039 I10 [id number] [place] [address] 05/14/2023 10:21:12 05/14/2023 11:09:01 Hyperlipidemia 67902125 E78.5 Essential hypertension 21798638 I10 Active or passive immunization 252603190 Z23 Body mass index 30+ - obesity 417475645 Z68.32 [id number] SHRUTHI ELDER, [facility] [address] 07/28/2023 08:34:45 07/28/2023 09:11:08 Dysuria 10699689 R30.0 Acute urin manuel tract infection 751308951 N39.0 [id number] [place] [address] 08/13/2023 10:13:33 08/13/2023 11:18:22 Hypertensive disorder 81636741 I10 Hyperlipidemia 77086061 E78.5 Vaginal dryness 24552632 N89.8 Body mass index 30+ - obesity 374170609 Z68.32 [id number] Ashanti Segundo II, MD [facility] [address],[place] [phone] 09/02/2023 09:31:54 09/02/2023 11:40:49 Atrophic vaginitis 18393471 N95.2 We will start with estradiol. I also discussed lubricatio n and moisturize rs and recommende d vegetable oil for that it. [id number] Rut Andre [place] [address] 11/18/2023 08:46:34 11/18/2023 09:43:02 Atrophic vaginitis 20655377 N95.2 Hypertensive disorder 38 293576 I10 Hyperlipidemia 81801093 E78.5 Body mass index 30+ - obesity 404679451 Z68.32 [id number] Rut Andre [place] [address] 02/17/2024 08:48:12 02/17/2024 09:41:22 Body mass index 30+ - obesity 998672856 Z68.32 Atrophic vaginitis 43187 000 N95.2 Hypertensive disorder 38 827551 I10 Hyperlipidemia 98777142 E78.5 Rheumatoid arthritis 698 61576 M06.9 [id number] Rut Powell SUPPORTIVE EMPLOYMENT CASE MANAGER [place] [phone] 05/19/2024 10:47:12 05/19/2024 11:40:18 Screening for malignant neoplasm of colon 036468581 Z12.11 Screening for malignant neoplasm of breast 325714988 Z12.39 Active or passive immunization 256154524 Z23 Mixed hyperlipidemia 267 797972 E78.2 Atrophic vaginitis 66970 000 N95.2 Hypertensive disorder 38 546611 I10 Hyperlipidemia 77765493 E78.5 Peripheral vascular disease 720779411 I73.9 pt see cardio on 05/23 Body mass index 25-29 - overweight 139824271 Z68.26 [id number] [place] [address] 08/17/2024 10:26:23 08/17/2024 11:09:11 Fatigue 49067860 R53.83 Vitamin D deficiency 347 56709 E55.9 Hyperlipidemia 53538412 E78.5 Hyperglycemia 13912037 R 73.9 Atrophic vaginitis 27272 000 N95.2 Hypertensive disorder 38 445225 I10 Body mass index 30+ - obesity 618014599 Z68.32 [id number] [place] [address] 11/17/2024 10:37:21 11/17/2024 12:16:11 Moderate recurrent major depression 37437579 F33.1 Atrophic vaginitis 04676 000 N95.2 Hypertensive disorder 38 631696 I10 Hyperlipidemia 77469402 E78.5 Body mass index 30+ - obesity 924800509 Z68.32 [id number] Aster [place] [address] 12/16/2024 10:43:30 12/16/2024 11:04:51 Acute laryngitis 9605734 J04.0 Continue mucinex, chlorasept ic spray, vocal rest, vaporizer, and warm teas with honey. Likely viral etiology and expected course was explained. Does not need antx at this time, but does need symptomati c management . [id number] Rut Stone, [place] [address] 12/22/2024 08:01:29 12/22/2024 08:58:01 Hyperlipidemia 36081315 E78.5 Pain of right hand 55652 41217 71037 M79.641 Moderate r ecurrent major depression 63842638 F33.1 Hypertensive disorder 38 680474 I10 Lower resp iratory tract infection 15839599 J22 Cough 45982667 R05.9 Body mass index 30+ - obesity 766245984 Z68.32 [id number] Merry Baltazar [place] [address] 02/03/2025 10:28:50 02/03/2025 11:39:02 Sore throat 427058619 J02.9 55766 Low back pain 081325214 M54.50 33579530 Streptococ arnav sore throat 64617001 J02.0 4094013 [id number] Rut Powell [place] [address] 02/19/2025 08:46:09 02/19/2025 09:15:16 Hypertensive disorder 38463183 I10 Hyperlipidemia 27924494 E78.5 Fatigue 26563341 R53.83 Hyperglycemia 97844445 R 73.9 HIV screening 240637113 Z11.4 [id number] Viral scre ening status 677676374 Z11.59 368095 Moderate r ecurrent major depression 48981195 F33.1 32330427 Body mass index 30+ - obesity 586299125 Z68.32 499630 Vaccination declined 684 9542158 Z28.21 9991149378 Atrophic vaginitis 84225 000 N95.2 [id number] Rut Powell [place] [id number] 0 05/22/2025 08:19:48 05/22/2025 09:01:05 Hyperthyroidism 74176467 E05.90 11252 Mixed hyperlipidemia 267 105046 E78.2 17369 Hyperglycemia 65439385 R 73.9 81257 Vitamin D deficiency 347 22692 E55.9 22321 Iron defic iency anemia 09771976 D50.9 35362559 Fatigue 53435239 R53.83 0194874 Atrophic vaginitis 89547 000 N95.2 Hypertensive disorder 38 316751 I10 Hyperlipidemia 40542641 E78.5 Body mass index 30+ - obesity 437481177 Z68.33 686711 [id number] Rut Powell[address] [address] 08/21/2025 07:50:55 08/21/2025 08:42:40 Influenza vaccination declined 704007219 Z28.21 6975031543 Fatigue 72164243 R53.83 0649776 Hypoadrenalism 936812868 E27.40 06250 Cobalamin deficiency 190 856452 E53.8 49270 Hypomagnesemia 097084512 E83.42 9931 Atrophic vaginitis 74857 000 N95.2 Hyperlipidemia 14069342 E78.5 Body mass index 30+ - obesity 678004076 Z68.35 892880 Health Concerns Section Related Observation LastModified by Organization Detai ls LastModified Time None Recorded Concern Status LastModified by Organization Details LastModified Time None Recorded Advance Directives Directive N: Payers Insurance Date Sequence Insurance Name Policy Number Policy Betancourt Covered Member ID Betancourt Member ID Guarantor Name 02/17/2024 1 [facility] (PPO) [id number] Arcadio Mathews [id number] 1 Minda Mathews 05/19/2024 1 *SELF PAY* Irina Graves 08/21/2025 SLIDING FEE SCHEDULE - DISCOUNT Minda Mathews 07/19/2024 1 UNSPECIFIED REMIT PAYOR Minda Mathews 08/18/2025 1 [facility] (MEDICAID REPLACEMENT - HMO) [place] Minda Mathews [id number] Minda Mathews 09/06/2025 SLIDING FEE SCHEDULE - DISCOUNT Minda Mathews Notes Date Note Type Note Provider Name and Address Organization Details Recorded Time 12/22/2024 text/html pt here today for medication refills. pt states shes doing well on current medication regime. pt states that the lexapro is helping. on assessment i found pt lungs to have congestion. pt states that she was seen on sat and was dx with viral infection and was given a steroid injection. states that she has gotten worse and she can barely rest with all the coughing. i will order abx and cough med. educated pt on new meds. pt voiced understanding. pt also c/o right hand middle finger pain and swelling for around 1 week. denies any trauma. on exam, pt right hand middle finger is significantly swollen and tender to touch and painful to bend. i will order xray for further evaluation. Rut Powell APRN [address] [place], [address], [employer] 12/22/2024 08:56:34 02/03/2025 text/html Sore ThroatRepor durga by Patient Patient presents for sore throat and back pain x a week now. Has not had a fever. She has had difficulty swallowing d/t throat pain. She also reports some back pain. Unsure if she may have UTI. NO dysuria. Merry Baltazar APRN [address] [place], [address], [employer] 02/12/2025 15:50:44 02/19/2025 text/html Hypertension F/UReported by Patient pt here today for medication refills. pt states shes doing well on current medication regime and has no new complaints today. pt filled out columbia scale and states that she doesnt really feel depressed but just states that on some days she does have thoughts of what if she wasnt here or life would be better if she wasnt here. but not that she wants to kill herself and she doesnt have any thoughts or plans of killing herself. Rut Powell APRN [address] [place], [address], [employer] 02/19/2025 09:23:14 05/22/2025 text/html pt here today for medicaton refills. pt states that she is doing well on current medication regime. pt did state that she is seeing psych at [facility] and they took her off of lexapro and switched her to another medication. states that with all of her symptoms that another med would help better. went to pick it up at [facility] and they wouldnt let her have it due to an interaction with the lexapro. they were supposed to call her psych doc. however hasnt heard anything. she is calling her psych doc today and see if she can have it today. she has stopped the lexapro for a week now. states that she is feeling more depressed, anxious and tearful and that she needs something . states that her cardio wanted her to get on the wt loss shot states that they ordered a home sleep study on wednesday but hasnt received it yet. pt also states that she is having issues with swallowing. states that almost every tie that she eats it will come back up . states that she will eat and then be doing the dishes and alot of her food will come back up. states it has been going on for a long time but it has gotten alot worse. pt states that she has chronic constipation and has to take daily miralax. i will refer to GI for further evaluation. Rut Powell APRN [address] [place], [address], [employer] 05/22/2025 10:00:03 08/21/2025 text/html pt here today for medication refills. pt states shes doing well on current medication. pt states that she is still feeling fatigued and is gaining so much wt. pt would like to have more labs. states that her lsat instructor ordered a sleep apnea test and she does have nader (i dont see results in chart) and states that she has been wearing cpap machine for a month. states that her cardio sent in wegovy but it was denied. i will order more labwork today. Rut Powell APRN [address] [place], [address], [employer] 08/21/2025 10:30:43 OBGyn Episode No OBEpisode recorded.
--- OUTSIDE RECORDS SUMMARY | 2025-09-14 07:15 | XMS_ITS | Continuity of Care Document ---
Author Organization [employer], [facility] Address [address] [place] [address] Care Team Providers Care Voice And Data Technician Name Role Phone RUT POWELL Primary Care Provider Unavailabl e Assessment No assessment recorded. Plan of Treatment Reminders Order Date Submit Date Provider Last Modified By Organization Details Last Modified Time Details Appointments FOLLOW UP 30 2025 08:30A David Powell APRN Not available Not available Not available Lab magnesium , serum or plasma 2024 025 [facility] [address] [place], [address], 08/22/2025 13:08:25 prolactin , serum 2024 025 [facility], [address] [place], [address], 08/22/2025 13:08:24 cortisol, am, serum 2024 025 [facility]), [address] [place], [address], 08/22/2025 13:08:26 PTH (parathyr oid hormone), intact, serum or plasma 2024 025 IRVONA [facility] [address] [place], [address], 08/22/2025 13:08:25 cobalamin and folate panel, serum 2024 025 [facility], [address] [place] [address], [place], [address], 08/22/2025 13:08:24 Referral None recorded. Procedures None recorded. Surgeries None recorded. Imaging None recorded. Medication Orders estradiol 0.01% (0.1 mg/gram) vaginal cream 2024 025 [facility], [address] [place] [address], [address], 09/10/2025 09:31:28 rosuvasta tin 40 mg tablet 2024 025 [facility], [address] [place] [address], [address], 08/21/2025 09:02:23 Patient TargetsNo targets recorded. Patient InstructionsNo instructions recorded. Reason for Referral None Reported. Problems Name Problem SNOMED Code Status Onset Date Resolution Date Notes Provider Name and Address Organization Details Recorded Time Hyperlipidemia 11255088 Active 2022 KARLA colindres [employer] 3 08:36:08 Acute urinary tract infection 925109683 Active 2022 LIZA MENESES [address] [place] [address], [address], [employer] 3 08:54:12 Atrophic vaginitis 77843724 Active 2022 Ashanti Segundo II, MD [address] [place] [address], [address], [employer] 3 10:16:41 Hypertensive disorder 62108558 Active 2023 Rut Powell APRN [address] [place] [address], [address], [employer] 4 09:39:42 Sore throat 005559864 Active 2024 Merry Baltazar APRN [address] [place] [address], [address], [employer] 5 11:10:49 Low back pain 996659987 Active 2024 Merry Baltazar, [employer] [address] [place], [address], [employer] 5 11:11:10 Streptococcal sore throat 63513499 Active 2024 Merry Baltazar, [employer] PROC[employer] [address] [place], [address], [employer] 5 11:11:23 Hyperglycemia 17304396 Active 2024 Jennifer colindres, [employer] 5 08:52:03 Fatigue 68968606 Active 2024 Jennifer Dozierlly bernadine, [employer] 5 08:52:03 Moderate recurrent major depression 21096324 Active 2024 Jennifer Loy bernadine, [employer] 5 08:52:55 Problem Notes None recorded. Procedures Surgical History Date Name Laterality Status Provider Name and Address Organization Details Recorded Time 08/03/20 24 colonoscopy completed [employer] 08/17/2024 10:35:59 06/02/20 24 Most Recent Mammogram completed [employer] 12/22/2024 08:04:51 08/23/20 20 Gallbladder Surgery completed [employer] 10/26/2022 09:54:07 01/06/20 11 Total Hysterectomy completed [employer] 10/26/2022 09:54:07 01/21/19 95 Caesarean Section completed [employer] 10/26/2022 09:54:07 Imaging Results None recorded. Procedure [...] Updated DateTime 5 162.56 cm 35.1 kg/m2 88912.6 4 g 63 /min 91 % 115/75 mm[Hg] Jennifer Weir [employer] 5 08:16:46 Social History Question Answer Notes LastModified by Organizat ion Details LastModified Time Tobacco Smoking Status Never Smoker KARLA HERNANDEZ bernadine [employer] 10/26/2022 09:54:06 Do You Have An Advance Directive? No [email or web address] Information not available 07/28/2023 Is Your Home Air Conditioned? Yes [email or web address] Information not available 10/26/2022 Do You Wear A Helmet When Biking? No [email or web address] Information not available 10/26/2022 Are You Blind Or Do You Have Difficulty Seeing? No [email or web address] Information not available 10/26/2022 What Is Your Level Of Caffeine Consumption? Moderate Information not available 10/26/2022 Are You A [...] Do You Have Serious Difficulty Hearing? No Information not available 10/26/2022 What Type Of Diet Are You Following? REGULAR [email or web address] Information not available 10/26/2022 What Is The Highest Grade Or Level Of School You Have Completed Or The Highest Degree You Have Received? [id number] [email or web address] Information not available 10/26/2022 Have There Been Any Changes To Your Family Or Social Situation? No [email or web address] Information no t available 10/26/2022 Are There Any Guns Present In Your Home? No [email or web address] Information not available 10/26/2022 Which Of Your Hands Is Dominant? Right Information not available 10/26/2022 Do You Engage In Moderate/heavy Exercise (e.g. Brisk Walk, Jogging, Strength Training, Etc)? No Information not available 08/21/2025 How Many Times In The Past Year Have You Used An Illegal Drug Or Used A Prescription Medication For Nonmedical Reasons? 0 Information not available 08/21/2025 Where Do You Live? SingleLevelHouse [email or web address] Information not available 10/26/2022 Do You Have A Medical Power Of Restaurant Floor Manager? No [email or web address] Information not available 10/26/2022 What Was The Date Of Your Most Recent Tobacco Screening? 08/21/2025 Information not available 08/21/2025 Have You Ever Been Counseled For Unhealthy Alcohol Use? No [email or web address] Information not available 10/26/2022 Do You Have Any Pets? Yes [email or web address] Information not available 10/26/2022 What Is Your Relationship Status? [email or web address] Information not available 10/26/2022 Have You Repeated Any Grades? Yes Information not available 10/26/2022 Do You Wear A Seatbelt When Driving Or As A Passenger? Yes Information not available 08/21/2025 Do You Use Your Seat Belt Or Car Seat Routinely? Yes [email or web address] Information not available 10/26/2022 Are You Sexually Active? Yes [email or web address] Information not available 10/26/2022 Do You Have Any Siblings? Yes Information not available 10/26/2022 Do You Have Smoke And Carbon Monoxide Detectors In Your Home? No Information not available 08/21/2025 Are You Passively Exposed To Smoke? No [email or web address] Information no t available 10/26/2022 Are There Any Smokers In Your House? No Information not available 10/26/2022 Do You Participate In Social Media? Yes [email or web address] Information not available 10/26/2022 What Types Of Sporting Activities Do You Participate In? None Information not available 08/21/2025 Do You Use Sunscreen Routinely? Yes [email or web address] Information not available 10/26/2022 Has Tobacco Cessation Counseling Been Provided? No [email or web address] Information not available 10/26/2022 Have You Recently Traveled Abroad? No [email or web address] Information not available 10/26/2022 Have You Used IV Drugs? No [email or web address] Information not available 10/26/2022 Do You Have Difficulty Walking Or Climbing Stairs? No Information not available 10/26/2022 Are You Currently In School? No Information not available 10/26/2022 What Contraceptive Method Was Reported At Start Of This Visit? None Information not available 08/21/2025 Do You Feel Safe In Your Home? Yes Information not available 08/21/2025 Do You Have Any Dietary Restrictions? No [email or web address] Information not available 10/26/2022 What Is Your Reason For Having No Contraceptive Method At Start Of This Visit? Same Sex Partner Information not available 08/21/2025 Sex: Unknown Functional Status Question Answer Note LastModified by Organizat ion Details LastModified Time Do you or have you ever used smokeless tobacco? Never used smokeless tobacco [email or web address] Information not available 10/26/2022 Are you currently employed? No Information not available 08/21/2025 Do you have transportation difficulties? No [email or web address] Information not available 10/26/2022 Are you able to care for yourself independently? Yes [email or web address] Information not available 10/26/2022 Do you have difficulty dressing, bathing, grooming, or toileting? No [email or web address] Information not available 10/26/2022 Do you or have you ever used e-cigarettes or vape? Never used electronic cigarettes [email or web address] Information not available 10/26/2022 What is your exercise level? Occasional [email or web address] Information not available 10/26/2022 Do you use any illicit or recreational drugs? No [email or web address] Information not available 10/26/2022 Do you feel safe in your relationship? Yes Information not available 08/21/2025 Do you or have you ever used any other forms of tobacco or nicotine? No [email or web address] Information not available 10/26/2022 What is your level of alcohol consumption? None [email or web address] Information not available 10/26/2022 Are you able to walk independently without assistance or assistive devices? YESWOREST [email or web address] Information not available 10/26/2022 Do you have difficulty doing errands alone? No [email or web address] Information not available 10/26/2022 Mental Status Question Answer Note LastModified by Organizat ion Details LastModified Time Do you feel stressed (tense, restless, nervous, or anxious, or unable to sleep at night)? [id number] [email or web address] Information not available 10/26/2022 Do you have difficulty concentrating, remembering or making decisions? No [email or web address] Information no t available 10/26/2022 Are you or have you been involved with bullying? No [email or web address] Information not available 10/26/2022 Family History Relationship Description Onset Age of this Age Resolved Age Notes LastModified by Organization Details LastModified Time Father No current problems or disability Not available 02/01 08:57:23 Father Heart disease [email or web address] Not available 10/26 09:54:06 Father Hypertensive disorder Not available 10/26 09:54:06 Father Hypercholest erolemia Not available 02/16 08:57:23 Mother No current problems or disability Not available 02/01 08:57:23 Mother Hypertensive disorder [email or web address] Not available 10/26 09:54:06 Sister Hypertensive disorder [email or web address] Not available 10/26 09:54:06 Maternal Grandmother Hypercholest erolemia Not available 02/16 08:57:23 Medical History Condition Response Anxiety Disorder Y Arthritis Y High Cholesterol Y Hospitalizations N Emergency room visit since last appointm ent. N Headaches Y Depression Y Gynecological History Statement/Question Response On BCP's at [...] recombinant 05/14/20 23 completed Rut Powell APRN [address] [place], [address], [employer] 05/14/2023 12:29:16 zoster recombinant 05/19/20 24 completed Rut Powell APRN [address] [place], [address], [employer] 05/19/2024 13:08:42 pneumococcal polysaccharide PPV23 02/20/20 25 cancelled patient objection Rut Powell APRN [address] [place], [address], [employer] 02/19/2025 09:18:47 Td (adult), 2 Lf tetanus toxoid, preservative free, adsorbed 06/16/20 06 completed KARLA colindres, [employer] 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 71660 Cobalamin deficiency 190 207391 E53.8 25435 Hypomagnesemia 883838088 E83.42 9931 Atrophic vaginitis 82169 000 N95.2 Hyperlipidemia 29826928 E78.5 Body mass index 30+ - obesity 838519280 Z68.35 344263 Health Concerns Section Related Observation LastModified by Organization Detai ls LastModified Time None Recorded Concern Status LastModified by Organization Details LastModified Time None Recorded Payers Encounter Date Sequence Insurance Name Policy Number Policy Betancourt Covered Member ID Betancourt Member ID Guarantor Name 08/21/2025 SLIDING FEE SCHEDULE - DISCOUNT Minda Mathews Notes Date Note Type Note Provider Name and Address Organization Details Recorded Time 08/21/2025 text/html pt here today for medication refills. pt states shes doing well on current medication. pt states that she is still feeling fatigued and is gaining so much wt. pt would like to have more labs. states that her corner cutter ordered a sleep apnea test and she does have nader (i dont see results in chart) and states that she has been wearing cpap machine for a month. states that her cardio sent in wegovy but it was denied. i will order more labwork today. Rut Powell APRN [address] [place] [address], [place], [address], [facility] 08/21/2025 10:30:43 OBGyn Episode No OBEpisode recorded.
--- OUTSIDE RECORDS SUMMARY | 2025-09-14 07:15 | XMS_ITS | Encounter Summary ---
Author Organization Healthcare Address [address] [place] [address] Care Team Providers Care Drapery Maker Name Role Phone Pcp, No Primary Care Provider Unavailabl e Reason for Referral * Consultation (Routine) - Closed Specialty Diagnoses / Procedures Referred By Yadiel t Referred To Contact Oral Surgery Diagnoses Fibroma of mouth Mauro Ferrell DMD [address] [place], [address] Phone: tel: fax: [facility] assistant merchandiser [facility] [address] [place] [address] [address] [place] [address] Phone: tel: Referral ID Status Reason Start Date Expiration Date V isits Requested Visits Authorized [id number] Closed Specialty Services Required 03/19/2025 09/18/2026 1 1 Encounter Details Date Type Department Care Team (Late st Contact Info) Description 03/19/2025 Community [facility] [address] [place] [address] Mauro Ferrell DMD [address] [place], [address] Fibroma of mouth (Primary Dx) Social History [...] Primary documented in this encounter Care Teams Drapery Maker Relationship Specialty Start Date End Date Pcp, [place] [address] PCP - General Family Medicine 04/02/25 documented as of this encounter
--- OUTSIDE RECORDS SUMMARY | 2025-09-14 07:15 | XMS_ITS | Clinical Summary ---
Author Organization Healthcare Address [address] [place] [address] Care Team Providers Care Buckle Frame Shaper Name Role Phone Pcp, No Primary Care [...] Take 1 tablet by mouth daily. Active Social History Tobacco Use Types Packs/Day Years [...] Years (1 of 1 - PCV) 2022 IOB-NHYBY-89 Vaccine ( - season) 2025 [facility]-Influenza Vaccine (#1) 2025 [facility]-Zoster [...] on patient's age to complete this topic Insurance [facility] MEDICAID [facility] MEDICAID Care Teams Buckle Frame Shaper Relationship Specialty Start Date End Date Adrian, [place] [address] PCP - General Family Medicine 04/02/25
[2025-09-14 07:47] VITALS: BMI 33.9
[2025-09-14 07:48] VITALS: BP 142/47; PULSE 55; RESP 17; TEMP 36.1; O2SAT 96
[2025-09-14 08:14] LABS: Chloride 101 mmol/L (98-107); Potassium 3.4 mmoL/L (3.5-5.1); Sodium 141 mmol/L (136-145)
[2025-09-14 08:17] LABS: Anion Gap 15.4 mEq/L (5-15); Blood Urea Nitrogen 10 mg/dl (7-17); Calcium 8.5 mg/dl (8.4-10.2); Carbon Dioxide 28 mmol/L (22.0-30.0); Creatinine Clearance Estimated 107 mL/min (50-200); Creatinine,Serum 0.90 mg/dl (0.52-1.04); Estimated Glomerular Filt Rate 66 ml/min (>60); GFR (African American) 80 ML/MIN (>60); Glucose 96 mg/dl (74-100)
[2025-09-14 08:29] VITALS: BP 155/87; PULSE 60; RESP 17; O2SAT 93
[2025-09-14] MEDS: NITROGLYCERIN 0.4MG SL TABLET SL (08:29)
--- NOTE | 2025-09-14 08:30 | CT_ITS ---
APPROVED REPORT Supervisor Final: CLINICAL INDICATION Chest Pain TECHNIQUE Image Acquisition: A 128 slice MDCT scanner ([employer]) was used for data acquisition. A noncontrast coronary calcium scan was performed. A CT attenuation threshold of 130 Hounsfield units (HU) was used for the detection of calcium in contiguous voxels of 1 sq mm in area to be counted as individual lesions. Bolus tracking in the ascending aorta with a threshold of 180 HU was performed. Immediately afterwards, ECG synchronized cardiac CT was then performed from the cardiac base to apex using retrospective gating with ECG tube current modulation. A total of 85 mL of Isovue 370 mg/mL contrast medium was administered at 5 mL/sec followed by a saline flush using a biphasic injection protocol. A tube voltage of 120 KVp was used. Image Reconstruction Transaxial images were reconstructed at 0.67 mm slide thickness. Data was reviewed interactively on an advanced workstation capable of 2 and 3-dimensional displays in all conventional reconstruction formats, including multiplanar reformations, maximum intensity projections, curved multiplanar reformations, and volume rendered reconstructions. When applicable, selected routine images describing the relevant coronary anatomy and pathology were saved and sent to PACS. Complications None Technical Quality Overall image quality was suboptimal due to significant motion. Coronary artery opacification was suboptimal. Total DLP (Dose-Length Product) is 1910.0 mGy-cm. The reported value represents the total of one or more individual components during the CT acquisition of this date and at this time, and as such, the same value may appear in more than one CT report depending on the interpreting/reporting physicians. COMPARISON None FINDINGS CT Coronary Calcium Scoring LMA (Left Main Artery) = 0 LAD (Left Anterior Descending) = 0 LCX (Left Coronary Circumflex) = 0 RCA (Right Coronary Artery) = 0 Total Calcium Score = 0 using the AJ-130 method. The interpretation of the calcium heart score is based on the following continuum*: 0 = no calcified plaque detected (risk of coronary artery disease is very low ??? less than 5%) 1-10 = calcium detected in extremely minimal levels (risk of coronary diseases is still low ??? less than 10%) 11-100 = mild levels of plaque detected with certainty (mild or minimal narrowing of heart arteries is likely) 101-400 = definite,at least moderate levels of plaque detected (relatively high risk of a heart attack within 3-5 years) >401-999 = extensive levels of plaque detected (high risk of heart attack, high levels of vascular disease are present, high likelihood of at least one significant coronary narrowing) *The calcium heart score quantifies the burden of coronary calcification/plaque in the coronary arteries. The calcium heart score is not able to evaluate the presence or burden of non-calcified (i.e. soft) plaque. There is no identifiable calcification in the aortic valve, mitral annulus or mitral valve, pericardium, or myocardium. Coronary CT Angiography The coronary arterial system is right dominant. Quantitative Stenosis Grading: Left Main (LM): The left main originates normally from the left sinus of Valsalva. The LM bifurcates into the left anterior descending artery and left circumflex artery. The LM is patent with no evidence of atherosclerosis. Left Anterior Descending (LAD) and Diagonal Branches: The LAD gives off 3 diagonal branch(es). The LAD and its branches are patent with no evidence of atherosclerosis. There is no evidence of LAD-myocardial bridge. Left Circumflex (LCX) and Obtuse Marginals (OM): The LCX gives off 1 Obtuse Marginal (OM) branch(es). The LCX and its branches are patent with no evidence of atherosclerosis. Right Coronary Artery (RCA): The RCA originates normally from the right sinus of Valsalva. The RCA gives off a posterior descending artery (PDA) and posterolateral (PL) branches. The RCA lumen is difficult to visualize in the setting of significant motion, but overall there is no obvious luminal stenosis in the RCA or its branches. Non-Coronary Cardiac Findings: Analysis of the left ventricular (LV) structure and function was performed after 3-D reconstruction of the LV from axial images, with user-corrected automatic contouring for assessment of LV volumes and user-defined reconstruction from oblique planes for measurement of 3-D cardiac structure and function. -The left ventricle systolic function is normal. -There is no left atrial appendage filling defect. Two right pulmonary veins and two left pulmonary veins drain normally into the left atrium. -No pericardial thickening or calcification. -Central and branch pulmonary arteries in the [id number] are unremarkable. -Thoracic aorta within the visualized thoracic aortic-branches in the [id number] is unremarkable. Extracardiac Structures No obvious significant extra-cardiac findings. Note, however, that this study is focused on the cardiac findings. IMPRESSION -Technically difficult study due to significant motion and blurring artifact with suboptimal opactification of the coronary arteries, specifically the RCA. This may affect the diagnostic interpretation of the study findings. -Absence of coronary calcification with an Agatston score = 0 using the AJ-130 method. -No obvious evidence of significant flow-limiting atherosclerosis of the coronary arteries in the visualized segments. -No evidence of coronary anomalies or myocardial bridging. -CAD-RADS 0. Management recommendations per ACC/AHA guidelines*, as clinically appropriate. *Recommendations: CAD RADS 0: Reassurance. Consider non-atherosclerotic causes of chest pain. CAD RADS 1: Consider non-atherosclerotic causes of chest pain. Consider preventive therapy and risk factor modification. CAD RADS 2: Consider non-atherosclerotic causes of chest pain. Consider preventive therapy and risk factor modification, particularly for patients with nonobstructive plaque in multiple segments. CAD RADS 3: Consider further functional testing. Consider symptom-guided anti-ischemic and preventive pharmacotherapy as well as risk factor modification per published guideline statements. CAD RADS 4A: Consider further functional testing or invasive coronary angiography with revascularization per published guideline statements. Consider symptom-guided anti-ischemic and preventive pharmacotherapy as well as risk factor modification per published guideline statements. CAD RADS 4B: Invasive coronary angiography recommended with revascularization per published guideline statements. Consider symptom-guided anti-ischemic and preventive pharmacotherapy as well as risk factor modification per published guideline statements. CAD RADS 5: Consider invasive angiography and/or viability assessment with revascularization per published guideline statements. Consider symptom-guided anti-ischemic and preventive pharmacotherapy as well as risk factor modification per published guideline statements. CRITICAL RESULT None COMMUNICATION Per this written report The coronary and cardiac findings of this CCTA were reviewed, reported, and signed by Albert Haile MD ([employer]). Conclusion Electronically signed by : Alberta Haile MD 09/15/2025 16:52:16
[2025-09-14 08:31] VITALS: BP 148/92; PULSE 59; RESP 17; O2SAT 99
[2025-09-14 08:34] VITALS: BP 158/82; PULSE 64; RESP 17; O2SAT 99
[2025-09-14] MEDS: IOPAMIDOL-370 (76%);100ML BOTTLE 85 ML IV (08:45)
[2025-09-14] MEDS: 0.9 % SODIUM CHLORIDE 50 ML VIAL 10 ML IV (08:45)
== END 2025-09-14 08:45 | disposition home or self-care (01) ==
PROVIDERS: PCP Nurse Practitioner; Visit Provider Nurse Practitioner
DX: I10 Essential (primary) hypertension (principal); R07.89 Other chest pain; Z82.49 Family history of ischemic heart disease and other diseases of the circulatory system
CPT/HCPCS: 75574; 80048; Q9967